=== PATIENT | female | born 1965 | race Caucasian/White ===

== ENCOUNTER 2020-10-23 15:44 | Outpatient (REF) | payer OTHER, SELFPAY ==
--- NOTE | ~2020-10-23 | XR_ITS ---
EXAMINATION: XR FOREARM, LEFT CLINICAL INFORMATION: Pain in the left wrist. COMPARISON: Radiographs of the left hand 04/24/2010 TECHNIQUE: AP and lateral views of the left forearm were obtained. FINDINGS: The bones and soft tissues are normal. No fracture. Imaged portions of the elbow and wrist are unremarkable. XR/XR forearm LT 2V IMPRESSION: Normal left forearm.
--- NOTE | ~2020-10-23 | XR_ITS ---
EXAMINATION: XR WRIST, LEFT CLINICAL INFORMATION: Pain in left wrist COMPARISON: Radiographs of the left hand 04/24/2018 TECHNIQUE: PA, lateral, and oblique views of the left wrist. FINDINGS: The bones are normal in mineralization and cortication. There is a tiny calcific density just distal to the ulnar styloid which is similar to prior radiographs. No acute fracture is identified. Cystic change within the scaphoid is better appreciated than on the previous study Carpal arcs are maintained and alignment is anatomic. Degenerative changes of the first and second carpometacarpal joints are similar to the prior study. Degenerative changes of the interphalangeal joint of the thumb are again noted. XR/XR wrist LT min 3V IMPRESSION: Degenerative changes of the left wrist without acute bony abnormality
== END 2020-10-23 15:45 | disposition home or self-care (01) ==
LOC: HO.HMGCX 15:44
PROVIDERS: PCP Internal Medicine; Visit Provider Physician Assistant
DX: M25.532 Pain in left wrist (principal)
CPT/HCPCS: 73090; 73110

== ENCOUNTER 2021-01-09 08:28 | Outpatient (REF) | payer OTHER, SELFPAY | END 2021-01-09 08:29 | disposition home or self-care (01) | LOC: HO.LAB 08:28 | PROVIDERS: Visit Provider Nurse Practitioner Family | DX: Z20.822 Contact with and (suspected) exposure to COVID-19 (principal) | CPT/HCPCS: U0003; U0005 ==

== ENCOUNTER 2021-01-12 11:54 | Outpatient (REF) | payer OTHER, SELFPAY ==
--- NOTE | ~2021-01-12 | XR_ITS ---
EXAMINATION: XR CHEST CLINICAL INFORMATION: Cough. COMPARISON: None TECHNIQUE: 2 views of the chest were obtained. FINDINGS: No significant abnormality is noted involving the heart, lungs, mediastinum, bony thorax or soft tissues. XR/XR chest 2V IMPRESSION: Unremarkable chest examination.
== END 2021-01-12 11:55 | disposition home or self-care (01) ==
LOC: HO.HMGCX 11:54
PROVIDERS: PCP Internal Medicine; Visit Provider Nurse Practitioner Family
DX: R05 Cough (principal)
CPT/HCPCS: 71046

== ENCOUNTER 2021-12-11 08:31 | Emergency (ER) | payer OTHER, SELFPAY ==
--- NOTE | ~2021-12-11 | XR_ITS ---
EXAMINATION: XR CHEST CLINICAL INFORMATION: Shortness of breath. COMPARISON: 01/12/2021 chest radiographs. TECHNIQUE: Frontal view of the chest was obtained. FINDINGS: No significant abnormality is noted involving the heart, lungs, mediastinum, bony thorax or soft tissues. XR/XR chest 1V IMPRESSION: No acute cardiopulmonary process.
[2021-12-11 08:34] VITALS: BP 107/78; PULSE 100; RESP 18; TEMP 36.9; O2SAT 100; BMI 32.9
--- NOTE | 2021-12-11 08:38 | ECG_ITS ---
Test Reason : weakness Blood Pressure : / mmHG Vent. Rate : 097 BPM Atrial Rate : 097 BPM P-R Int : 144 ms QRS Dur : 088 ms QT Int : 358 ms P-R-T Axes : 049 063 006 degrees QTc Int : 454 ms Normal sinus rhythm Possible Left atrial enlargement Nonspecific ST abnormality Abnormal ECG No previous ECGs available Referred By: Generic ED Physician Electronically Signed By:ROBERTO ROMO MD
--- NOTE | 2021-12-11 08:41 | PC.NURSE ---
lungs - diminished all lobes
[2021-12-11 08:52] LABS: MANUAL DIFF FLAG NO
[2021-12-11 08:56] LABS: Basophils Absolute Auto 0.1 X10*3/uL (0.0-0.2); Basophils Percent Auto 0.6 % (0-2); Eosinophils Absolute Auto 0.2 X10*3/uL (0.0-0.4); Eosinophils Percent Auto 2.2 % (0-4); Hematocrit 39.4 % (37.0-47.0); Hemoglobin 12.9 g/dl (12.0-16.0); Imm Gran Abs Auto 0.05 X10*3/uL (0.00-0.03); Imm Gran Pct Auto 0.6 % (0.0-0.4); Lymphocytes Absolute Auto 1.2 X10*3/uL (1.2-4.9); Lymphocytes Percent Auto 13.4 % (20-40); Mean Corpuscular HGB Conc 32.7 g/dl (31.0-35.0); Mean Corpuscular Hemoglobin 29.7 pg (27.0-33.0); Mean Corpuscular Volume 90.6 fL (80.0-98.0); Mean Platelet Volume 8.2 fL (9.4-12.3); Monocytes Absolute Auto 0.6 X10*3/uL (0.1-1.2); Neutrophils Absolute Auto 6.8 x10*3/uL (2.0-8.3); Neutrophils Percent Auto 76.2 % (45-73); Platelet Count 296 X10*3/uL (160-400); Red Blood Count 4.35 X10*6/uL (4.20-5.50); Red Cell Distribution Width 13.1 % (11.0-16.0)
[2021-12-11 09:08] LABS: COVID-19 Test Negative (Negative)
[2021-12-11 09:09] LABS: Anion Gap 13 (12-20); Blood Urea Nitrogen 17 mg/dL (9-16); Calcium 9.5 mg/dL (8.4-10.2); Carbon Dioxide 21 mmol/L (22-29); Chloride 111 mmol/L (96-108); Creatinine Clr Calc Pharmacy 71.4; Estimated Glomerular Filt Rate > 60; Glucose Random 132 mg/dL (60-115); Potassium 3.9 mmol/L (3.3-5.1); Sodium 141 mmol/L (135-145)
[2021-12-11 09:16] LABS: B Type Natriuretic Peptide 20 pg/mL (<100); Troponin-I High Sensitivity < 3.5 ng/L (<3.5-17.0)
[2021-12-11 09:32] VITALS: BP 125/68; PULSE 84; RESP 17; TEMP 37; O2SAT 97
[2021-12-11 09:39] LABS: IDNOW Serial# 16C4AD1C; Influenza A Negative (Negative); Influenza B2 Negative (Negative)
--- NOTE | 2021-12-11 09:48 | ED.SOB ---
HPI - SOB/Dyspnea General Chief Complaint: Dyspnea Stated Complaint: SOB/cough Time Seen by Provider: 12/11/21 09:02 History of Present Illness HPI Narrative: Patient is a 56-year-old female presented with coughing upper respiratory symptoms generalized malaise. Long history of seasonal allergies. History of seasonal allergies history of smoking presented with coughing congestion upper respiratory symptoms. Patient immunized for COVID. No diaphoresis. No new chest pain. Positive pain on coughing only. Patient from home. Related Data Home Medications Medication Instructions Recorded Confirmed topiramate 50 mg tablet 50 mg PO BID 06/18/20 10/21/21 venlafaxine 75 mg capsule,extended mg PO 06/18/20 10/21/21 release 24 hr quetiapine 50 mg tablet 50 mg PO BEDTIME 01/09/21 10/21/21 buspirone 10 mg tablet 10 mg PO TID 04/01/21 10/21/21 Previous Rx's Medication Instructions Recorded fluticasone propionate 50 1 spray INTRANASAL QAM #16 g 03/26/21 mcg/actuation nasal spray,suspension nicotine (polacrilex) 4 mg gum 4 mg BUCCAL Q2H PRN #120 ea 04/01/21 nicotine 21 mg/24 hr daily 1 patch TRANSDERMAL Q24H #28 ea 04/01/21 transdermal patch diclofenac sodium 75 mg 75 mg PO BID PRN #60 tab 06/23/21 tablet,delayed release famotidine 20 mg tablet 20 mg PO BEDTIME #90 tab 10/05/21 terbinafine HCl 250 mg tablet 250 mg PO DAILY 10 Days #10 tab 10/21/21 albuterol sulfate 90 mcg/actuation 2 puff INHALATION Q6H PRN #8.5 g 12/07/21 aerosol inhaler loratadine 10 mg tablet 10 mg PO DAILY #90 tab 12/07/21 benzonatate 200 mg capsule 200 mg PO BID PRN 5 Days #14 cap 12/11/21 doxycycline hyclate 100 mg capsule 100 mg PO BID 7 Days #14 cap 12/11/21 Allergies Allergy/AdvReac Type Severity Reaction Status Date / Time N.K.D.A. Allergy Unknown unknown Uncoded 10/21/21 10:09 Review of Systems Review of Systems: Positive coughing upper respiratory symptoms positive generalized malaise Yes all other systems are reviewed and are negative PMFSH Past Medical History Attestation statement: The following information was validated with the patient. Medical History Allergic rhinitis Cigarette smoker motivated to quit Depression History of alcohol abuse History of cataract History of cocaine abuse Osteoarthritis of knees, bilateral Polyarthralgia Smokes less 2 pack day motivated to quit Tinea corporis Surgical History History of breast surgery History of cataract surgery Family History Family History Father Unknown family medical history Mother Diabetes mellitus Myocardial infarction Arthritis CVD (cardiovascular disease) Substance use disorder Mental health disorder Brother Myocardial infarction Intestinal hernia Diabetes mellitus Sister Anorexic Bipolar disorder Asthma Brain tumor Substance use disorder Mental health disorder Social History Social History Household Members Other:: mother Housing: House Alcohol intake: former Patient Tobacco Use Status: Current someday Tobacco user Cigarettes Per Day: 10 Advance Directives: No Patient : No service: No Current occupational status: employed Physical Exam Vital Signs: Vital Signs: Last Vital Signs Temp 98.6 F 12/11/21 09:32 Pulse 84 12/11/21 09:32 Resp 17 12/11/21 09:32 BP 125/68 12/11/21 09:32 Pulse Ox 97 12/11/21 09:32 BMI result Body Mass Index 32.9 Appearance: Alert. Oriented X3. No acute distress. Eyes: Pupils equal, round and reactive to light. ENT: Pharynx normal. Neck: Normal inspection. Neck supple. No lymph nodes noted. No crepitus CVS: Normal heart rate and rhythm. Pulses normal. Normal S1 and S2 Respiratory: No respiratory distress. Breath sounds normal. No Wheezing. No rales Abdomen: Soft and nontender. No rigidity. No distention. good BS x4 Skin: Skin warm and dry. Normal skin color. Normal skin turgor. Extremities: No lower extremity edema. Neurovascular intact to all extremities. No Lacerations. No Rash Neuro: Oriented X 3. No motor deficit. No sensory deficit. Moving all extermities. No slurred speech MDM - SOB/Dyspnea MDM Narrative Medical decision making narrative: Chest x-ray showed no focal infiltrate. EKG shows sinus pattern heart rate is 100 CO QRS QT within normal limits there is nonspecific T-wave flattening noted. Cardiac enzyme was negative in the setting of upper respiratory symptoms atypical history unlikely ACS. Patient's flu and COVID were negative. Will start patient on doxycycline for bronchitis. Test on parole for cough. Follow-up on an outpatient basis. O2 sat was normal emergency department at 98%. Medical Records Attestation: I reviewed the patient's medical records. Lab Data Attestation: I reviewed the patient's lab results. Result diagrams: 12/11/21 08:47 12/11/21 08:47 Labs: Lab Results 12/11/21 12/11/21 12/11/21 Range/Units 08:47 08:47 08:47 WBC 9.0 (4.8-10.8) X10*3/uL RBC 4.35 (4.20-5.50) X10*6/uL Hgb 12.9 (12.0-16.0) g/dl Hct 39.4 (37.0-47.0) % MCV 90.6 (80.0-98.0) fL MCH 29.7 (27.0-33.0) pg MCHC 32.7 (31.0-35.0) g/dl RDW 13.1 (11.0-16.0) % Plt Count 296 (160-400) X10*3/uL MPV 8.2 L (9.4-12.3) fL Immature Gran % (Auto) 0.6 H (0.0-0.4) % Neut % (Auto) 76.2 H (45-73) % Lymph % (Auto) 13.4 L (20-40) % [place] % (Auto) 7.0 (2-11) % Eos % (Auto) 2.2 (0-4) % Baso % (Auto) 0.6 (0-2) % Lymph # (Auto) 1.2 (1.2-4.9) X10*3/uL [place] # (Auto) 0.6 (0.1-1.2) X10*3/uL Eos # (Auto) 0.2 (0.0-0.4) X10*3/uL Baso # (Auto) 0.1 (0.0-0.2) X10*3/uL Abs Immat Gran (auto) 0.05 H (0.00-0.03) X10*3/uL Absolute Neuts (auto) 6.8 (2.0-8.3) x10*3/uL Absolute Nucleated RBC 0.000 (0.0-0.012) X10*3/uL Nucleated RBC % (auto) 0.0 (0.0-0.2) /100WBC Sodium 141 (135-145) mmol/L Potassium 3.9 (3.3-5.1) mmol/L Chloride 111 H (96-108) mmol/L Carbon Dioxide 21 L (22-29) mmol/L Anion Gap 13 (12-20) BUN 17 H (9-16) mg/dL Creatinine 0.86 (0.5-1.4) mg/dL Estim Creat Clear Calc 71.4 Estimated GFR > 60 Random Glucose 132 H (60-115) mg/dL Calcium 9.5 (8.4-10.2) mg/dL Troponin I High Sens < 3.5 (<3.5-17.0) ng/L B-Natriuretic Peptide 20 (<100) pg/mL COVID-19 (TAM) (Negative) COVID-19 Clin Com Influenza Type A (TETO) (Negative) Influenza Type B (TETO) (Negative) Influenza A & B Note 12/11/21 12/11/21 Range/Units 08:47 09:17 WBC (4.8-10.8) X10*3/uL RBC (4.20-5.50) X10*6/uL Hgb (12.0-16.0) g/dl Hct (37.0-47.0) % MCV (80.0-98.0) fL MCH (27.0-33.0) pg MCHC (31.0-35.0) g/dl RDW (11.0-16.0) % Plt Count (160-400) X10*3/uL MPV (9.4-12.3) fL Immature Gran % (Auto) (0.0-0.4) % Neut % (Auto) (45-73) % Lymph % (Auto) (20-40) % [place] % (Auto) (2-11) % Eos % (Auto) (0-4) % Baso % (Auto) (0-2) % Lymph # (Auto) (1.2-4.9) X10*3/uL [place] # (Auto) (0.1-1.2) X10*3/uL Eos # (Auto) (0.0-0.4) X10*3/uL Baso # (Auto) (0.0-0.2) X10*3/uL Abs Immat Gran (auto) (0.00-0.03) X10*3/uL Absolute Neuts (auto) (2.0-8.3) x10*3/uL Absolute Nucleated RBC (0.0-0.012) X10*3/uL Nucleated RBC % (auto) (0.0-0.2) /100WBC Sodium (135-145) mmol/L Potassium (3.3-5.1) mmol/L Chloride (96-108) mmol/L Carbon Dioxide (22-29) mmol/L Anion Gap (12-20) BUN (9-16) mg/dL Creatinine (0.5-1.4) mg/dL Estim Creat Clear Calc Estimated GFR Random Glucose (60-115) mg/dL Calcium (8.4-10.2) mg/dL Troponin I High Sens (<3.5-17.0) ng/L B-Natriuretic Peptide (<100) pg/mL COVID-19 (TAM) Negative (Negative) COVID-19 Clin Com See Note Influenza Type A (TETO) Negative (Negative) Influenza Type B (TETO) Negative (Negative) Influenza A & B Note See Note ECG Data Attestation: I personally reviewed and interpreted this ECG as follows: Discharge Plan Discharge Clinical Impression: Bronchitis Patient Disposition: Home, Self-Care Instructions: Acute Bronchitis (ED) Prescriptions: New doxycycline hyclate 100 mg capsule 100 mg PO BID 7 Days Qty: 14 0RF benzonatate 200 mg capsule 200 mg PO BID PRN (Reason: cough) 5 Days Qty: 14 0RF No Action fluticasone propionate 50 mcg/actuation spray,suspension 1 spray intranasal QAM Qty: 16 3RF nicotine (polacrilex) 4 mg gum 4 mg buccal Q2H PRN (Reason: nicotine cravings) Qty: 120 0RF diclofenac sodium 75 mg tablet,delayed release (/EC) 75 mg PO BID PRN (Reason: pain) Qty: 60 0RF famotidine 20 mg tablet 20 mg PO BEDTIME Qty: 90 1RF loratadine 10 mg tablet 10 mg PO DAILY Qty: 90 3RF albuterol sulfate 90 mcg/actuation HFA aerosol inhaler 2 puff inhalation Q6H PRN (Reason: shortness of breath or wheezing) Qty: 8.5 4RF buspirone 10 mg tablet 10 mg PO TID 0RF nicotine 21 mg/24 hr patch 24 hour 1 patch transdermal Q24H Qty: 28 0RF topiramate 50 mg tablet 50 mg PO BID 0RF venlafaxine 75 mg capsule,extended release 24hr PO 0RF quetiapine 50 mg tablet 50 mg PO BEDTIME 0RF terbinafine HCl 250 mg tablet 250 mg PO DAILY 10 Days Qty: 10 0RF Referrals: Sara Cid MD [Primary Care Provider] -
== END 2021-12-11 10:37 | disposition home or self-care (01) ==
PROVIDERS: Emergency Provider Emergency Medicine Emergency Medical Services; PCP Internal Medicine
DX: J40 Bronchitis, not specified as acute or chronic (principal); R06.02 Shortness of breath; F17.210 Nicotine dependence, cigarettes, uncomplicated; Z20.822 Contact with and (suspected) exposure to COVID-19
CPT/HCPCS: 36415; 71045; 80048; 83880; 84484; 85025; 87502; 87635; 93005; 99283; 99284

== ENCOUNTER 2022-02-05 07:04 | Outpatient (REF) | payer OTHER, SELFPAY ==
[2022-02-05 11:40] LABS: Glucose Fasting 97 mg/dL (60-99)
[2022-02-05 12:07] LABS: TSH reflex Free T4 2.48 uIU/mL (0.32-4.0)
[2022-02-07 05:12] LABS: Lyme Abs Screen <0.90 index
== END 2022-02-05 07:05 | disposition home or self-care (01) ==
LOC: HO.HMGCLDS 07:04
PROVIDERS: Visit Provider Internal Medicine
DX: R21 Rash and other nonspecific skin eruption (principal); R42 Dizziness and giddiness
CPT/HCPCS: 36415; 82947; 84443; 86617; 86618

== ENCOUNTER 2022-03-09 10:45 | Outpatient (RCR) | payer OTHER, SELFPAY ==
[2022-03-09 10:56] VITALS: BP 112/80; PULSE 78; O2SAT 98
--- NOTE | 2022-03-09 11:56 | MHC.PT.EP ---
[facility] [place] Office [place] Office [place] Office [address] [phone] F: [phone] F: [phone] F: [phone] F: [phone] Physical Therapy Plan of Care Date of Evaluation: Date of Surgery: Diagnosis: This is a 56 yo female presenting to skilled PT with a script for dizziness and giddiness. Assessment: This is a 56 yo female presenting to skilled PT with a script for dizziness and giddiness. Patient reporting onset of symptoms about 3 months ago. Symptoms are random but occur only with movement, not at rest (however she is unable to recall specific movements that cause her symptoms.) Patient reports symptoms described as spinning fast, B arms go numb, gets a feeling of weirdness at the mouth, and gets nauseous. She needs to lay down for 2 hrs after an event. Denies imaging. Denies medications. She reports LOB but no falls. She has never had symptoms like this in the past. Examination shows abnormal oculomotor tests except for spontaneous saccades, horizontal saccades and smooth pursuits, (-) VBI B, and normal cervical AROM (however reports concerns of bumps and numbness in neck. She was (-) for BPPV in all 6 canals and demos normal scores on balance tests. S/S are not consistent with BPPV at this time. She may benefit from further imaging due to abnormal eye movements, referral to ENT, bloodwork or referral to a nuerologist to address impairments, implement POC and optimize functional mobility. 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 Manual therapy to restore motion and function. Therapeutic exercise to improve strength and flexibility. Neuromuscular re-education for posture and balance. Therapeutic activities to return to functional activities of daily living. Electronically signed by: Ellen Mckinnon, PT Please sign and return to therapist. Thank you for your referral.
--- NOTE | 2022-04-09 10:45 | MHC.PT.DC ---
[facility] [place] Office [place] Office [place] Office [address] Jadon Marques [address] [phone] F: [phone] F: [phone] F: [phone] F: [phone] Physical Therapy Discharge Report Diagnosis: This is a 56 yo female presenting to skilled PT with a script for dizziness and giddiness. Date of Surgery: Date of Evaluation: 03/09/22 Date of Discharge: 04/09/22 Treatments to Date: 1 Cancellations to Date: 0 No Shows to Date: 0 Discharge Status: Patient Elected to Stop Recommend MD Follow-up Discharge Summary: This is a 56 yo female presenting to skilled PT with a script for dizziness and giddiness. Patient reporting onset of symptoms about 3 months ago. Symptoms are random but occur only with movement, not at rest (however she is unable to recall specific movements that cause her symptoms.) Patient reports symptoms described as spinning fast, B arms go numb, gets a feeling of weirdness at the mouth, and gets nauseous. She needs to lay down for 2 hrs after an event. Denies imaging. Denies medications. She reports LOB but no falls. She has never had symptoms like this in the past. Examination shows abnormal oculomotor tests except for spontaneous saccades, horizontal saccades and smooth pursuits, (-) VBI B, and normal cervical AROM (however reports concerns of bumps and numbness in neck. She was (-) for BPPV in all 6 canals and demos normal scores on balance tests. S/S are not consistent with BPPV at this time. She may benefit from further imaging due to abnormal eye movements, referral to ENT, bloodwork or referral to a neurologist to address impairments, implement POC and optimize functional mobility. Patient called and was seeing an specialist who wants her to hold. Waited 30 days and then DC'd Electronically signed by: Ellen Mckinnon PT Please sign and return to therapist. Thank you for your referral.
== END 2022-04-09 10:46 | disposition home or self-care (01) ==
LOC: HO.PTCHIC 10:45
PROVIDERS: PCP Internal Medicine; Visit Provider Internal Medicine
DX: R42 Dizziness and giddiness (principal)
CPT/HCPCS: 97110; 97161; 97162

== ENCOUNTER 2022-04-22 08:01 | Outpatient (REF) | payer OTHER, SELFPAY ==
--- NOTE | ~2022-04-22 | MR_ITS ---
EXAMINATION: MR BRAIN WITHOUT AND WITH CONTRAST CLINICAL INFORMATION: Vertigo. Evaluate for acoustic neuroma. COMPARISON: No relevant prior imaging. TECHNIQUE: Multiplanar MR imaging the brain was performed without and with contrast. Total of 8.5 mL Gadavist was utilized for this examination. FINDINGS: Dedicated high-resolution imaging through the posterior fossa reveals no cerebellopontine angle cistern mass. There is no abnormal enhancement along the cisternal segments of the 7th or 8th cranial nerves. Labyrinthine structures are morphologically normal. There is trace fluid within the left mastoid air cells. No abnormal petrous temporal bone enhancement. Postcontrast images reveal no abnormal mass or enhancement elsewhere within the intracranial compartment. No intracranial mass effect or midline shift. Lateral and third ventricles are normal. No hydrocephalus. Midline structures including the cervicomedullary junction are normal. No acute bone marrow signal changes. There are scattered nonspecific foci of T2 FLAIR signal hyperintensity within the periventricular white matter and [place]. No acute territorial infarct. Intracranial vascular flow voids are grossly maintained. MR/MR head/brain wo/w con IMPRESSION: There is a trace volume of fluid within the left mastoid air cells. There are also scattered chronic small vessel ischemic changes within the periventricular white matter and bridgette. No evidence of acute territorial infarct or hemorrhage. There is no abnormal intracranial mass or enhancement. Specifically no evidence of a vestibular schwannoma.
== END 2022-04-22 08:02 | disposition home or self-care (01) ==
LOC: HO.MRI 08:01
PROVIDERS: Visit Provider Psychiatry & Neurology Neurology
DX: R42 Dizziness and giddiness (principal)
CPT/HCPCS: 70553; A9585

== ENCOUNTER 2022-06-01 09:39 | Outpatient (REF) | payer OTHER, SELFPAY ==
[2022-06-01 12:20] LABS: Erythrocyte Sedimentation Rate 9 MM/HR (0-20)
[2022-06-02 17:52] LABS: Lyme Abs Screen <0.90 index
[2022-06-04 11:43] LABS: Anti Nuclear Antibody Screen NEGATIVE (NEGATIVE)
== END 2022-06-01 09:40 | disposition home or self-care (01) ==
LOC: HO.HMGCLDS 09:39
PROVIDERS: PCP Internal Medicine; Visit Provider Psychiatry & Neurology Neurology
DX: R42 Dizziness and giddiness (principal)
CPT/HCPCS: 36415; 85652; 86038; 86039; 86617; 86618

== ENCOUNTER 2022-09-14 07:13 | Outpatient (REF) | payer OTHER, SELFPAY ==
[2022-09-14 11:29] LABS: MANUAL DIFF FLAG NO
[2022-09-14 11:35] LABS: Basophils Absolute Auto 0.1 X10*3/uL (0.0-0.2); Basophils Percent Auto 0.7 % (0-2); Eosinophils Absolute Auto 0.2 X10*3/uL (0.0-0.4); Eosinophils Percent Auto 2.4 % (0-4); Hematocrit 40.2 % (37.0-47.0); Hemoglobin 13.1 g/dl (12.0-16.0); Imm Gran Abs Auto 0.03 X10*3/uL (0.00-0.03); Imm Gran Pct Auto 0.4 % (0.0-0.4); Lymphocytes Absolute Auto 2.2 X10*3/uL (1.2-4.9); Lymphocytes Percent Auto 31.2 % (20-40); Mean Corpuscular HGB Conc 32.6 g/dl (31.0-35.0); Mean Corpuscular Hemoglobin 29.2 pg (27.0-33.0); Mean Corpuscular Volume 89.5 fL (80.0-98.0); Monocytes Absolute Auto 0.5 X10*3/uL (0.1-1.2); Monocytes Percent Auto 6.9 % (2-11); Neutrophils Absolute Auto 4.2 x10*3/uL (2.0-8.3); Neutrophils Percent Auto 58.4 % (45-73); Platelet Count 362 X10*3/uL (160-400); Red Blood Count 4.49 X10*6/uL (4.20-5.50); White Blood Count 7.1 X10*3/uL (4.8-10.8)
[2022-09-14 11:51] LABS: Alanine Aminotransferase 15 U/L (0-31); Anion Gap 15 (12-20); Aspartate Amino Transferase 15 U/L (5-31); Blood Urea Nitrogen 25 mg/dL (9-16); Calcium 9.2 mg/dL (8.4-10.2); Carbon Dioxide 21 mmol/L (22-29); Chloride 110 mmol/L (96-108); Cholesterol 205 mg/dL; Estimated Glomerular Filt Rate > 60; Glucose Fasting 87 mg/dL (60-99); HDL Cholesterol 49 mg/dL; LDL Cholesterol Calculated 133 mg/dl; Sodium 142 mmol/L (135-145); Triglycerides 119 mg/dL
[2022-09-14 12:10] LABS: TSH reflex Free T4 1.88 uIU/mL (0.32-4.0); Vitamin D 25-OH Total 28.5 ng/mL (>30)
[2022-09-14 12:11] LABS: Estimated Average Glucose 108 mg/dL; Hemoglobin A1c % 5.4 %
== END 2022-09-14 07:14 | disposition home or self-care (01) ==
LOC: HO.HMGCLDS 07:13
PROVIDERS: PCP Internal Medicine; Visit Provider Internal Medicine
DX: E66.3 Overweight (principal); M25.50 Pain in unspecified joint; R25.1 Tremor, unspecified; R42 Dizziness and giddiness
CPT/HCPCS: 36415; 80048; 80061; 82306; 83036; 84443; 84450; 84460; 85025

== ENCOUNTER 2023-01-05 12:41 | Outpatient (AMB) | payer OTHER, MEDICAID, SELFPAY ==
--- NOTE | 2023-01-05 12:54 | MHC.PC.OV ---
Vital Signs 01/05/23 13:17 Height 5 ft 3 in Weight 197 lb 8 oz BMI 35.0 BP 128/76 Blood Pressure Location Rt brachial Position Sitting Pulse 101 H Pulse Source Pulse Oximeter Pulse Oximetry (%) 97 Oxygen Delivery Method Room Air Intake Visit Reasons: annual Pe Intake Note: Pt is here today for her Physical Exam Allergies N.K.D.A. Allergy (Unknown, Uncoded 06/23/23 01:32) unknown Medication List - Last Reconciled 06/23/23 by Sara Cid MD albuterol sulfate 90 mcg/actuation (Ventolin HFA) 2 puffs inhalation Q6H PRN benzonatate 200 mg PO TID PRN buspirone 15 mg PO TID famotidine 20 mg PO DAILY fluticasone propionate 50 mcg/actuation (Flonase Allergy Relief) 1 spray intranasal DAILY loratadine 10 mg PO DAILY topiramate 50 mg PO BID venlafaxine ER 150 mg PO DAILY Tobacco use date assessed: 01/05/23 HPI annual Pe HPI Details 58-year-old lady here today for her physical exam. She has anxiety/ depression currently stable controlled on buspirone taken 15 mg 1 tablet 3 times a day, taken together with venlafaxine ER 150 mg daily. Has allergic rhinitis currently on loratadine 10 mg daily and uses Flonase nasal spray as needed. She is overdue for her screening mammogram, and declines getting any Pap smear/cervical cancer screening or colon cancer screening. She smokes cigarettes, would would like assistance in quitting. Complains of nasal congestion with frontal headaches and postnasal drainage which has been present now for the last week. Has been taking [id number] cough cold medication which affords only temporary relief. Denies any fever or shortness of breath accompanying above symptoms. [facility] Medical History (Updated 06/23/23 @ 01:57 by Sara Cid MD) Obesity (BMI 30.0-34.9) Anxiety and depression Tinea corporis Polyarthralgia Smokes less 2 pack day motivated to quit Cigarette smoker motivated to quit Allergic rhinitis History of cataract History of alcohol abuse History of cocaine abuse Osteoarthritis of knees, bilateral Surgical History History of breast surgery History of cataract surgery Family History Father Unknown family medical history Mother Diabetes mellitus Myocardial infarction Arthritis CVD (cardiovascular disease) Substance use disorder Mental health disorder Brother Myocardial infarction Intestinal hernia Diabetes mellitus Sister Anorexic Bipolar disorder Asthma Brain tumor Substance use disorder Mental health disorder Social History Household Members Other:: mother Housing: House Alcohol intake: former Patient Tobacco Use Status: Former Tobacco user Cigarettes Per Day: 10 e-Cigarette/Vaping Use: Never Used service: No Current occupational status: employed Cognitive needs: No Hearing needs: No Vision needs: Yes Questionnaire PHQ-9 Over the last 2 weeks, how often have you been bothered by any of the following problems? 1. Little interest or pleasure in doing things: nearly every day 2. Feeling down, depressed, or hopeless: more than half the days 3. Trouble falling or staying asleep, or sleeping too much: more than half the days 4. Feeling tired or having little energy: nearly every day 5. Poor appetite or overeating: nearly every day 6. Feeling bad about yourself - or that you are a failure or have let yourself or your family down: several days 7. Trouble concentrating on things, such as reading the newspaper or watching television: several days 8. Moving or speaking so slowly that other people could have noticed. Or the opposite - being so fidgety or restless that you have been moving around a lot more than usual: not at all 9. Thoughts that you would be better off or of hurting yourself in some way: not at all Total score: 15 Depression Screening Interpretation: Positive Depression Screening Follow-up: Existing condition, In treatment and Community Mental Health Worker F/U Source: Developed by Drs. Beto Gomez, Rupinder Mccullough, Reggie Sena and colleagues, with an educational rashida from [employer]. Thrive Questionnaire Date Thrive assessed: 01/05/23 I am a: Patient What is your living situation today?: I have a steady place to live Within the past 12 months, did the food you bought not last and you didn't have the money to get more?: Never true Within the past 12 months, did you worry whether your food would run out before you got money to buy more?: Sometimes True Do you have trouble paying for medicines?: No Do you have trouble getting transportation to medical appointments?: No Do you have trouble paying your heating and electricity bill?: No Do you have trouble taking care of your child, family member or friend?: No Do you have trouble with day-to-day activities such as bathing, preparing meals, shopping, managing finances, etc.?: No Are you currently unemployed and looking for a job?: No Are you interested in more education?: No AUDIT C Alcohol Use Questionnaire (AUDIT-C) 1. How often do you have a drink containing alcohol?: Never Total Score: 0 ELLIE-7 AMB Questionnaire ELLIE-7 Date ELLIE - 7 assessed: 01/05/23 Feeling nervous, anxious, or on edge: 3 = Nearly every day Not being able to stop or control worryin = Nearly every day Worrying too much about different things: 2 = More than half the days Trouble relaxin = More than half the days Being so restless that it is hard to sit still: 1 = Several days Becoming easily annoyed or irritable: 2 = More than half the days Feeling afraid as if something awful might happen: 0 = Not at all Total ELLIE-7 score (0-4 normal; 5-9 mild; 10-14 moderate; 15-21 severe): 13 Source: Developed by Drs. Beto Gomez, Rupinder Mccullough, Reggie Sena and colleagues, with an educational rashida from [employer]. ELLIE-7 Assessment Billing ELLIE-7 Assessment Tool: ELLIE-7 Assessment 95038 Review of Systems Const Reports as per HPI, Denies body aches, Denies fatigue, Denies fever(s) and Denies weakness Eyes Denies change in vision, Denies eye discharge, Denies itchy eyes and Reports requires corrective lenses ENT Reports as per HPI, Denies dizziness, Denies ear discharge, Denies epistaxis, Reports post nasal drip, Reports sinus pressure and Denies sore throat Card Denies chest pain, Denies lightheadedness, Denies palpitations and Denies dyspnea Resp Denies chest congestion, Reports cough, Denies dyspnea and Denies wheezing GI Denies abdominal pain, Denies change in bowel habits and Denies heartburn Denies hematuria, Denies urinary frequency, Denies dysuria and Denies urinary urgency Musc Reports arthralgias, Denies joint swelling, Denies muscle weakness and Reports stiffness Skin/Breast Denies breast pain, Denies breast mass, Denies lesions and Denies rash Neuro Denies dizziness and Denies weakness Psych Reports as per HPI Endo Denies fatigue, Denies polydipsia, Denies polyuria and Denies palpitations Yovany/Lymph Denies easy bruising Aller/Immun Denies itchy eyes, Denies seasonal rhinorrhea and Denies wheezing Physical exam (Primary Care) Vital Signs: Last Vital Signs Pulse 101 H 01/05/23 13:17 BP 128/76 01/05/23 13:17 Pulse Ox 97 01/05/23 13:17 Oxygen Delivery Method Room Air 01/05/23 13:17 BMI result Body Mass Index 35.0 Tobacco/Smoking Status: Tobacco use Status Tobacco use date assessed 01/05/23 01/05/23 13:21 Patient Tobacco Use Status Current everyday Tobacco 01/05/23 14:16 e-Cigarette/Vaping Use Never Used 01/05/23 12:54 PHQ-9: PHQ-9 Score PHQ-9: Total score 15 01/05/23 13:52 Depression Screening Interpretation: Positive Depression Screening Follow-up: Existing condition, In treatment and Community Mental Health Worker F/U Thrive Assessment: Date of Thrive Assessment Date Thrive assessed 01/05/23 01/05/23 13:38 Const General: no acute distress Orientation/consciousness: patient oriented x3 HENMT Ears: external ears normal, TM normal on the left and EAC's normal General nose exam: Normal external nose present and No nasal discharge present Face and sinus: Yes sinuses nontender and Yes face symmetric Mouth: Normal oral and palatal mucosa present, oropharynx normal and moist mucous membranes Eyes General: appearance normal, both eyes and all related structures Neck Neck: Yes full ROM, Yes no lymphadenopathy and Yes supple Chest Breast/axilla palpation: normal palpation of the breasts Resp Effort & Inspection: able to speak in complete sentences, audible wheezes and Actively coughing Quality: actively coughing Auscultation: diminished lung sounds Cardio Rate: regular rate Rhythm: regular rhythm Heart sounds: S1 normal heart sound present and S2 normal heart sound present GI Palpation (GI): Soft to palpation, nontender and no masses General: Yes no CVA tenderness and Yes deferred (Patient declined exam) Back/Spine/Pelvis Back: no CVA tenderness and No back tenderness Skin General skin exam: dry skin Neuro General: patient oriented x3, gait normal, moves all extremities, Normal light touch and pain sensation, no focal motor deficits and CN's II-XI intact bilaterally Extrem General: Yes full ROM, Yes no joint enlargement, Yes no clubbing, cyanosis or edema and Yes normal gait Psych Appearance: grossly normal Mental Status: mental status grossly normal Speech and movement: Normal speech and movement present Affect: normal affect Attitude: cooperative Thought process: Normal thought process present Results Reviewed Results Reviewed: ENTERED: 09/14/[address]: ORDERED: Met Prof Fast, AST, ALT, Lipid Panel, Vitamin D 25-OH, TSH Rflx Test Result Flag Reference Site Sodium 142 135-145 mmol/L Potassium 4.0 3.3-5.1 mmol/L CL 110 H 96-108 mmol/L CO2 21 L 22-29 mmol/L Gap 15 12-20 BUN 25 H 9-16 mg/dL Creat 0.80 0.5-1.4 mg/dL EGFR > 60 NOTE: For -Cymraes individuals, multiply the result by 1.210. Chronic Kidney Disease: Estimated GFR < 60 mL/min/1.73m2 Severe Kidney Disease: Estimated GFR < 15 mL/min/1.73m2 FBS 87 60-99 mg/dL CA 9.2 8.4-10.2 mg/dL AST (GOT) 15 5-31 U/L ALT (GPT) 15 0-31 U/L Triglyceride 119 mg/dL Desirable Triglyceride: less than 150 mg/dL Borderline High Triglyceride 150-199 mg/dL High Triglyceride: 200-499 mg/dL Very High Triglyceride: greater than or equal to 5OO mg/dL Chol 205 mg/dL Desirable Cholesterol: less than 200 mg/dL Borderline High Cholesterol: 200-239 mg/dL High Cholesterol: greater than 239 mg/dL LDL Calculated 133 mg/dl Desirable LDL: less than 100 mg/dL Near Optimal/Above Optimal LDL: 110-129 mg/dL Borderline High LDL: 130-159 mg/dL High LDL: 160-189 mg/dL Very High LDL: greater than or equal to 190 mg/dL HDL 49 mg/dL Desirable HDL: greater than 40 mg/dL Note: This HDL assay may give artificially low results in patients with liver disease. Vit D 25-OH Tot 28.5 >30 ng/mL Health Based Reference Values* < 20 ng/mL Deficient 20-30 ng/mL Insufficient > 30 ng/mL Sufficient *Conor DIEGO. N Engl J Med. 2007;357:266-280 Care must be taken in interpreting Vitamin D results from different laboratories and methodologies. Published data demonstrated that results from patients undergoing hemodialysis may show a negative bias when tested with various automated 25-OH vitamin D assays when compared to LC-MS/MS. When testing samples from patients whose predominant form of Vitamin D is Vitamin D2, such as patients receiving Vitamin D2 supplementation, results that are subtherapeutic should be confirmed with another method such as LC-MS/MS. TSH 1.88 0.32-4.0 uIU/mL ENTERED: 09/14/22 [facility] : ORDERED: CBC Auto Diff Test Result Flag Reference Site WBC 7.1 4.8-10.8 X10*3/uL RBC 4.49 4.20-5.50 X10*6/uL HGB 13.1 12.0-16.0 g/dl HCT 40.2 37.0-47.0 % MCV 89.5 80.0-98.0 fL MCH 29.2 27.0-33.0 pg MCHC 32.6 31.0-35.0 g/dl RDW 13.0 11.0-16.0 % PLT 362 160-400 X10*3/uL MPV 9.0 L 9.4-12.3 fL Neut Pct Auto 58.4 45-73 % ImGran Pct Auto 0.4 0.0-0.4 % Lymp Pct Auto 31.2 20-40 % Coffey Pct Auto 6.9 2-11 % Eos Pct Auto 2.4 0-4 % Baso Pct Auto 0.7 0-2 % NRBC Pct Auto 0.0 0.0-0.2 /100WBC ANC Neut Abs # 4.2 2.0-8.3 x10*3/uL ImGran Abs Auto 0.03 0.00-0.03 X10*3/uL Lymph Abs Auto 2.2 1.2-4.9 X10*3/uL Coffey Abs Auto 0.5 0.1-1.2 X10*3/uL Eos Abs Auto 0.2 0.0-0.4 X10*3/uL Baso Abs Auto 0.1 0.0-0.2 X10*3/uL NRBC Abs Auto 0.000 0.0-0.012 X10*3/uL Assessment and Plan Assessment & Plan (1) Annual visit for general adult medical examination with abnormal findings: Code(s): Z00.01 - Encounter for general adult medical examination with abnormal findings Plan: Recent fasting labs reviewed with patient. Recommended dental visit every 6 months and regular eye exams, at least every 2 years. Take adequate calcium in diet and vitamin-D 3 at 2000 IU per cap once a day, as latest vitamin-D level is low., in addition to weight-bearing exercises to help maintain good muscle tone and weight control. Instructed to do self-breast exam, and scheduled for her screening mammogram be done yearly, but patient does not want to get any cervical cancer screening or referral for colon cancer screening (2) Obesity (BMI 30.0-34.9): Code(s): E66.9 - Obesity, unspecified Plan: Discussed need to increase activity and wt reduction. Recommended focusing on improving your health instead of dieting. : Eat Mediterranean diet, limit foods high in fat, sugar, and calories, eat slowly, pay attention to portion sizes, plan your meals ahead of time, start regular physical activity 150 minutes of moderate intensity exercise or 90 minutes/week of vigorous exercise and increase water intake. (3) Cigarette smoker motivated to quit: Code(s): F17.210 - Nicotine dependence, cigarettes, uncomplicated Plan: Prescription sent for nicotine patch 21 mg per patch to apply to affected sites on upper arm, upper chest and upper back and reminded to remove patch at night before going to bed and reapplied again the next morning. Reminded to rotate sites of application, not to smoke when using the patch. See back for follow-up in 4 weeks (4) Anxiety and depression: Comment: Followed by Jacklyn chavez Code(s): F41.9 - Anxiety disorder, unspecified; F32.A - Depression, unspecified Plan: Followed by psychiatry and sees therapist. (5) Allergic rhinitis: Code(s): J30.9 - Allergic rhinitis, unspecified Qualifiers: Allergic rhinitis trigger: unspecified Allergic rhinitis seasonality: unspecified Qualified Code(s): J30.9 - Allergic rhinitis, unspecified Plan: Continue with fluticasone propionate nasal spray as directed (6) Bronchitis: Code(s): J40 - Bronchitis, not specified as acute or chronic Plan: Prescription sent for azithromycin to take as directed, as well as benzonatate Perles to be used as needed for dry cough Orders: Orders MM screening mammo BI 01/05/23 Z12.31 - Encounter for screening mammogram for malignant neoplasm of breast Medications: New azithromycin For 250 mg dose pack: take 500 mg today (day 1), then 250 mg for 4 days (days 2-5) PO 6 tabs 0RF nicotine apply 1-21 mg NICOTINE PATCH daily for 28 days; follow with 1-14 mg PATCH daily for 14 days, then 1-7mg PATCH daily for 14 days transdermal advised to rotate sites of application and remove at bedtime 56 patches 0RF Changed From famotidine 20 mg PO BEDTIME 90 tabs 0RF To famotidine 20 mg PO DAILY 90 tabs 1RF From albuterol sulfate 90 mcg/actuation 2 puffs inhalation Q6H PRN 8.5 grams 4RF shortness of breath or wheezing To albuterol sulfate 90 mcg/actuation 2 puffs inhalation Q6H PRN 8.5 grams 4RF shortness of breath or wheezing Refilled benzonatate 200 mg PO TID PRN 20 caps 0RF cough fluticasone propionate 50 mcg/actuation (Flonase Allergy Relief) administer into each nostril 1 spray intranasal DAILY 9.9 mL 1RF loratadine 10 mg PO DAILY 90 tabs 3RF Discontinued nicotine Discontinued Reason: No Longer Medically Relevant 1 inh inhalation Q2-4H PRN 168 ea 0RF nicotine cravings Review Patient declined Colonoscopy: 01/05/23 Coding Level of Care Code Est Pt Prev Care 40-64y(21133) Diagnoses Annual visit for general adult medical examination with abnormal findings Z00.01 Obesity (BMI 30.0-34.9) E66.9 Cigarette smoker motivated to quit F17.210 Anxiety and depression F41.9; F32.A Allergic rhinitis, unspecified seasonality, unspecified trigger J30.9 Allergic rhinitis trigger: unspecified Allergic rhinitis seasonality: unspecified Bronchitis J40 Additional Codes ELLIE-7 Assessment Billing - ELLIE-7 Assessment Tool: ELLIE-7 Assessment 42001 ([id number])
[2023-01-05 13:17] VITALS: BP 128/76; PULSE 101; O2SAT 97; BMI 35.0
== END 2023-01-05 14:24 | disposition home or self-care (01) ==
LOC: HO.HMGC 12:42
PROVIDERS: PCP Internal Medicine; Visit Provider Internal Medicine
DX: Z00.00 Encounter for general adult medical examination without abnormal findings (principal); E66.9 Obesity, unspecified; F17.210 Nicotine dependence, cigarettes, uncomplicated; Z68.35 Body mass index [BMI] 35.0-35.9, adult; F41.9 Anxiety disorder, unspecified; F32.A Depression, unspecified; J30.9 Allergic rhinitis, unspecified; J40 Bronchitis, not specified as acute or chronic
CPT/HCPCS: 99396

== ENCOUNTER 2023-05-07 06:33 | Outpatient (REF) | payer OTHER, MEDICAID, SELFPAY ==
[2023-05-07 12:01] LABS: Alanine Aminotransferase 17 U/L (0-31); Anion Gap 14 (12-20); Aspartate Amino Transferase 17 U/L (5-31); Blood Urea Nitrogen 24 mg/dL (9-16); Calcium 9.5 mg/dL (8.4-10.2); Carbon Dioxide 22 mmol/L (22-29); Chloride 111 mmol/L (96-108); Cholesterol 168 mg/dL (<200); Estimated Glomerular Filt Rate > 60; Glucose Fasting 87 mg/dL (60-99); HDL Cholesterol 48 mg/dL (>40); LDL Cholesterol Calculated 100 mg/dL (<100); Sodium 143 mmol/L (135-145); Triglycerides 101 mg/dL (<150); Vitamin D 25-OH Total 64.7 ng/mL (>30)
== END 2023-05-07 06:34 | disposition home or self-care (01) ==
LOC: HO.HMGCLDS 06:33
PROVIDERS: PCP Internal Medicine; Visit Provider Internal Medicine
DX: Z00.01 Encounter for general adult medical examination with abnormal findings (principal); E66.9 Obesity, unspecified; F41.9 Anxiety disorder, unspecified; F32.A Depression, unspecified; M25.50 Pain in unspecified joint; F32.9 Major depressive disorder, single episode, unspecified; N95.1 Menopausal and female climacteric states; F17.200 Nicotine dependence, unspecified, uncomplicated
CPT/HCPCS: 36415; 80048; 80061; 82306; 84450; 84460

== ENCOUNTER 2023-05-10 13:07 | Outpatient (AMB) | payer OTHER, MEDICAID, SELFPAY ==
--- NOTE | 2023-05-10 13:39 | MHC.PC.OV ---
Vital Signs 05/10/23 13:40 Height 5 ft 3 in Weight 178 lb BMI 31.5 BP 126/70 Blood Pressure Location Lt brachial Position Sitting Pulse 88 Pulse Source Pulse Oximeter Pulse Oximetry (%) 97 Oxygen Delivery Method Room Air Intake Visit Reasons: Rapid weight loss Intake Note: patient is here today for rapid weight loss Allergies N.K.D.A. Allergy (Unknown, Uncoded 06/23/23 01:32) unknown Medication List - Last Reconciled 05/10/23 by Sara Cid MD albuterol sulfate 90 mcg/actuation (Ventolin HFA) 2 puffs inhalation Q6H PRN benzonatate 200 mg PO TID PRN buspirone 15 mg PO TID famotidine 20 mg PO DAILY fluticasone propionate 50 mcg/actuation (Flonase Allergy Relief) 1 spray intranasal DAILY loratadine 10 mg PO DAILY topiramate 50 mg PO BID venlafaxine ER 150 mg PO DAILY Tobacco use date assessed: 05/10/23 Dental Screening Dental Screen Date: 05/10/23 Did you have a dental visit in the last 12 months?: No Did you have a dental problem in the last 6 months where you did not have access to dental care?: No Was dental information given to patient?: No HPI Rapid weight loss HPI Details 58-year-old lady here today concerned about her weight loss. She has been trying to lose weight, however she is concerned about the rapidity of her weight loss. She was weighing 197 lb in December 2022 and now weighs 178 lb., a 19 lb weight loss in 5 months. She does state that her appetite is not as robust and she has been fairly active these last few months. Denies any weakness, no dizziness, no chest pain, no nausea vomiting or shortness of breath or lightheadedness reported. [facility] Medical History (Updated 06/23/23 @ 01:57 by Sara Cid MD) Obesity (BMI 30.0-34.9) Anxiety and depression Tinea corporis Polyarthralgia Smokes less 2 pack day motivated to quit Cigarette smoker motivated to quit Allergic rhinitis History of cataract History of alcohol abuse History of cocaine abuse Osteoarthritis of knees, bilateral Surgical History History of breast surgery History of cataract surgery Family History Father Unknown family medical history Mother Diabetes mellitus Myocardial infarction Arthritis CVD (cardiovascular disease) Substance use disorder Mental health disorder Brother Myocardial infarction Intestinal hernia Diabetes mellitus Sister Anorexic Bipolar disorder Asthma Brain tumor Substance use disorder Mental health disorder Social History Household Members Other:: mother Housing: House Alcohol intake: former Patient Tobacco Use Status: Former Tobacco user Cigarettes Per Day: 10 e-Cigarette/Vaping Use: Never Used service: No Current occupational status: employed Cognitive needs: No Hearing needs: No Vision needs: Yes Questionnaire Thrive Questionnaire Date Thrive assessed: 01/05/23 AUDIT C Alcohol Use Questionnaire (AUDIT-C) 1. How often do you have a drink containing alcohol?: Never Total Score: 0 ELLIE-7 AMB Questionnaire ELLIE-7 Date ELLIE - 7 assessed: 01/05/23 Source: Developed by Drs. Beto Gomez, Rupinder Mccullough, Reggie Sena and colleagues, with an educational rashida from [employer]. Review of Systems Const Reports as per HPI, Denies body aches, Denies fatigue, Denies fever(s) and Denies weakness Eyes Denies change in vision and Reports requires corrective lenses ENT Reports no additional complaints Card Denies chest pain, Denies lightheadedness, Denies palpitations and Denies dyspnea Resp Denies chest congestion, Denies dyspnea and Denies wheezing GI Denies abdominal pain, Denies change in bowel habits, Denies dyspepsia, Denies heartburn and Denies nausea Denies hematuria, Denies urinary frequency, Denies dysuria and Denies urinary urgency Musc Denies joint swelling, Denies muscle weakness and Reports stiffness Skin/Breast Denies rash Neuro Denies weakness Psych Details: Currently followed by psychiatry Reports no additional complaints Endo Denies fatigue, Denies polydipsia, Denies polyuria and Denies palpitations Yovany/Lymph Denies easy bruising Aller/Immun Denies seasonal rhinorrhea and Denies wheezing Physical exam (Primary Care) Vital Signs: Last Vital Signs Pulse 88 05/10/23 13:40 BP 126/70 05/10/23 13:40 Pulse Ox 97 05/10/23 13:40 Oxygen Delivery Method Room Air 05/10/23 13:40 BMI result Body Mass Index 31.5 Tobacco/Smoking Status: Tobacco use Status Tobacco use date assessed 05/10/23 05/10/23 13:43 Patient Tobacco Use Status Former Tobacco user 05/10/23 13:52 e-Cigarette/Vaping Use Never Used 05/10/23 13:43 Thrive Assessment: Date of Thrive Assessment Date Thrive assessed 01/05/23 05/10/23 13:43 Const General: no acute distress Orientation/consciousness: patient oriented x3 HENMT Ears: external ears normal General nose exam: Normal external nose present and No nasal discharge present Face and sinus: Yes face symmetric Mouth: Normal oral and palatal mucosa present, oropharynx normal and moist mucous membranes Eyes General: appearance normal, both eyes and all related structures Neck Neck: Yes full ROM, Yes no lymphadenopathy and Yes supple Chest Breast/axilla palpation: normal palpation of the breasts Resp Effort & Inspection: able to speak in complete sentences Cardio Rate: regular rate Rhythm: regular rhythm Heart sounds: S1 normal heart sound present and S2 normal heart sound present GI Palpation (GI): Soft to palpation, nontender and no masses General: Yes no CVA tenderness Back/Spine/Pelvis Back: no CVA tenderness and No back tenderness Skin General skin exam: dry skin Neuro General: patient oriented x3, gait normal, moves all extremities, Normal light touch and pain sensation, no focal motor deficits and CN's II-XI intact bilaterally Extrem General: Yes full ROM, Yes no joint enlargement, Yes no clubbing, cyanosis or edema and Yes normal gait Psych Appearance: grossly normal Mental Status: mental status grossly normal Speech and movement: Normal speech and movement present Affect: normal affect Attitude: cooperative Thought process: Normal thought process present Office Procedures Flu Questionnaire Does the patient have a severe egg allergy?: No Does the patient have severe life threatening allergies?: No Does the patient have a fever or illness today?: No Has the patient ever had Guillain-Grant Syndrome?: No Has the patient ever had any past reaction to a flu shot?: No Immunizations flu vacc [id number] 6mos up(PF) 60 mcg(15 mcgx4)/0.5 mL IM syringe Performing Provider: Sara Cid MD Performing Location: [facility] Administered by: Sade Davis CMA on 05/10/23 14:11 Dose Route Admin Location Dispensed Lot Number Expiration Date NDC [employer] 0.5 mL IM Right Deltoid 0.5 mL [id number] 02/05/24 98061-908-01 [employer] VIS Given Date VIS Provided VIS Publication Date 05/10/23 Single Vaccine 21 Eligibility Eligibility Date Funding Source Not [facility] Eligible 05/10/23 Private Assessment and Plan Assessment & Plan (1) Obesity (BMI 30.0-34.9): Code(s): E66.9 - Obesity, unspecified Plan: Advised patient that a 19 lb weight loss in a span of 5 months is a healthy weight loss.. Continue with adhering to healthy eating habits and getting regular exercise at least 30 minutes and a daily basis, strongly advised to quit smoking. (2) Anxiety and depression: Comment: Followed by Jacklyn chavez Code(s): F41.9 - Anxiety disorder, unspecified; F32.A - Depression, unspecified Plan: Patient requesting a refill on her venlafaxine as she has not been able to contact her psychiatrist. Refill sent, patient also on buspirone 15 mg 1 tablet 3 times a day (3) Flu vaccine need: Code(s): Z23 - Encounter for immunization Plan: Flu vaccine given today Orders: Orders Influenza [id number] Immunization 05/10/23 Z23 - Encounter for immunization Medications: New venlafaxine ER 150 mg PO DAILY 90 caps 0RF Coding Level of Care Code Est Pt Level 3 (31672) Diagnoses Obesity (BMI 30.0-34.9) E66.9 Anxiety and depression F41.9; F32.A Flu vaccine need Z23
[2023-05-10 13:40] VITALS: BP 126/70; PULSE 88; O2SAT 97; BMI 31.5
== END 2023-05-10 14:27 | disposition home or self-care (01) ==
PROVIDERS: PCP Internal Medicine; Visit Provider Internal Medicine
DX: E66.9 Obesity, unspecified (principal); F41.9 Anxiety disorder, unspecified; F32.A Depression, unspecified; Z68.31 Body mass index [BMI] 31.0-31.9, adult
CPT/HCPCS: 90471; 90686; 99213

== ENCOUNTER 2023-07-07 11:36 | Outpatient (AMB) | payer OTHER, MEDICAID, SELFPAY ==
[2023-07-07 11:48] VITALS: BP 130/86; PULSE 101; O2SAT 98; BMI 32.3
--- NOTE | 2023-07-07 11:48 | MHC.PC.OV ---
Vital Signs 07/07/23 11:48 Height 5 ft 3 in Weight 182 lb 4 oz BMI 32.3 BP 130/86 Blood Pressure Location Rt brachial Position Sitting Pulse 101 H Pulse Source Pulse Oximeter Pulse Oximetry (%) 98 Oxygen Delivery Method Room Air Intake Visit Reasons: left shoulder pain Intake Note: Pt is here for left shoulder pain and arm pain that goes up to her neck she has had for over a month [place] [facility] [place] prednisone 50 mg and cyclobenzaprine 10 mg that did help some but pt is still at a 10 with her pain Allergies N.K.D.A. Allergy (Unknown, Uncoded 07/07/23 12:31) unknown Medication List - Last Reconciled 07/07/23 by Sara Cid MD albuterol sulfate 90 mcg/actuation (Ventolin HFA) 2 puffs inhalation Q6H PRN buspirone 15 mg PO TID cyclobenzaprine 10 mg PO BEDTIME PRN famotidine 20 mg PO DAILY fluticasone propionate 50 mcg/actuation (Flonase Allergy Relief) 1 spray intranasal DAILY loratadine 10 mg PO DAILY nabumetone 500 mg PO BID PRN topiramate 50 mg PO BID venlafaxine ER 150 mg PO DAILY Tobacco use date assessed: 07/07/23 Dental Screening Dental Screen Date: 07/07/23 Did you have a dental visit in the last 12 months?: No Did you have a dental problem in the last 6 months where you did not have access to dental care?: No Was dental information given to patient?: No HPI left shoulder pain HPI Details 58 year old lady today complaining of shoulder pain on the left present now for the last month. She states that initially started on her upper arm radiating down left forearm and up to her left upper back and shoulder. Denies any history of strenuous exertion, no history of trauma. Was seen at an urgent care in [place] and was prescribed prednisone 50 mg daily for 7 days and cyclobenzaprine 10 mg taken once a day for 7 days which afforded only temporary relief while taking the medication. She denies any numbness, no weakness in extremities, no chest pain palpitations or shortness of breath. No imaging done [facility] Medical History Left shoulder pain Obesity (BMI 30.0-34.9) Anxiety and depression Tinea corporis Polyarthralgia Smokes less 2 pack day motivated to quit Cigarette smoker motivated to quit Allergic rhinitis History of cataract History of alcohol abuse History of cocaine abuse Osteoarthritis of knees, bilateral Surgical History History of breast surgery History of cataract surgery Family History Father Unknown family medical history Mother Diabetes mellitus Myocardial infarction Arthritis CVD (cardiovascular disease) Substance use disorder Mental health disorder Brother Myocardial infarction Intestinal hernia Diabetes mellitus Sister Anorexic Bipolar disorder Asthma Brain tumor Substance use disorder Mental health disorder Social History Household Members Other:: mother Housing: House Alcohol intake: former Patient Tobacco Use Status: Former Tobacco user Cigarettes Per Day: 10 e-Cigarette/Vaping Use: Never Used service: No Current occupational status: employed Cognitive needs: No Hearing needs: No Vision needs: Yes Questionnaire Thrive Questionnaire Date Thrive assessed: 01/05/23 ELLIE-7 AMB Questionnaire ELLIE-7 Date ELLIE - 7 assessed: 01/05/23 Source: Developed by Drs. Beto Gomez, Rupinder Mccullough, Reggie Sena and colleagues, with an educational rashida from [employer]). Review of Systems Const All systems reviewed & are unremarkable except as noted in HPI and below Physical exam (Primary Care) Vital Signs: Last Vital Signs Pulse 101 H 07/07/23 11:48 BP 130/86 07/07/23 11:48 Pulse Ox 98 07/07/23 11:48 Oxygen Delivery Method Room Air 07/07/23 11:48 BMI result Body Mass Index 32.3 Tobacco/Smoking Status: Tobacco use Status Tobacco use date assessed 07/07/23 07/07/23 11:57 Patient Tobacco Use Status Former Tobacco user 07/07/23 11:51 e-Cigarette/Vaping Use Never Used 07/07/23 11:51 Thrive Assessment: Date of Thrive Assessment Date Thrive assessed 01/05/23 07/07/23 11:51 Const General: comfortable, alert, awake and Physically active Orientation/consciousness: patient oriented x3 Neck Neck: Yes full ROM and Yes no lymphadenopathy Chest Chest palpation & inspection: normal inspection of the chest Resp Auscultation: clear to auscultation bilaterally Cardio Rate: regular rate Rhythm: regular rhythm Heart sounds: S1 normal heart sound present and S2 normal heart sound present Skin General skin exam: no rashes or lesions noted Neuro Other: Unable to abduct left arm more than 45 degrees without eliciting pain in left shoulder joint General: patient oriented x3 and gait normal Extrem Other: Positive tenderness and swelling over left trapezius and left AC joint, decreased range of motion of left arm due to pain Assessment and Plan Assessment & Plan (1) Left shoulder pain: Code(s): M25.512 - Pain in left shoulder Qualifiers: Chronicity: acute Qualified Code(s): M25.512 - Pain in left shoulder Plan: X-ray of left shoulder and cervical spine ordered, referred for physical therapy. Prescription sent for nabumetone 500 mg per tablet to take 1 twice a day as needed for moderate to severe pain. Patient advised to take it always with a meal. Refill prescription also sent for cyclobenzaprine 10 mg to take 1/2-1 tablet once or twice a day as needed for painful muscle spasm. Orders: Orders XR cervical spine min 6V Today M25.512 - Pain in left shoulder XR shoulder LT min 2V Today M25.512 - Pain in left shoulder PT Evaluation and Treatment Today M25.512 - Pain in left shoulder Medications: New nabumetone 500 mg PO BID PRN 40 tabs 0RF pain, moderate cyclobenzaprine 10 mg PO BEDTIME PRN 30 tabs 0RF muscle spasm Coding Level of Care Code Est Pt Level 3 (28324) Diagnoses Acute pain of left shoulder M25.512 Chronicity: acute
== END 2023-07-07 13:03 | disposition home or self-care (01) ==
PROVIDERS: PCP Internal Medicine; Visit Provider Internal Medicine
DX: M25.512 Pain in left shoulder (principal)
CPT/HCPCS: 99213

== ENCOUNTER 2023-07-07 12:26 | Outpatient (REF) | payer OTHER, MEDICAID, SELFPAY ==
--- NOTE | ~2023-07-07 | XR_ITS ---
STUDY: Cervical spine, left shoulder INDICATION: Left shoulder pain COMPARISON: None TECHNIQUE: 3 view cervical spine, three-view left shoulder FINDINGS: Cervical spine: Mild straightening of normal cervical lordosis. Minimal anterolisthesis C4 on C5. C5-C6 and C6-C7 disc space narrowings. Hypertrophic facet changes. Odontoid is intact, posterior elements are aligned and no prevertebral soft tissue swelling seen. Lung apices are clear. Calcification left cervical region may be vascular. Left shoulder: Mild acromioclavicular joint space narrowing. Joint is maintained. No fracture, dislocation or abnormal calcifications. Visualized ribs and left lung are unremarkable. XR/XR cervical spine min 6V IMPRESSION: Cervical lordotic straightening, minimal anterolisthesis C4 on C5, C5-C6 and C6-C7 disc space narrowings. No acute bony pathology left shoulder. Mild degenerative change.
--- NOTE | ~2023-07-07 | XR_ITS ---
STUDY: Cervical spine, left shoulder INDICATION: Left shoulder pain COMPARISON: None TECHNIQUE: 3 view cervical spine, three-view left shoulder FINDINGS: Cervical spine: Mild straightening of normal cervical lordosis. Minimal anterolisthesis C4 on C5. C5-C6 and C6-C7 disc space narrowings. Hypertrophic facet changes. Odontoid is intact, posterior elements are aligned and no prevertebral soft tissue swelling seen. Lung apices are clear. Calcification left cervical region may be vascular. Left shoulder: Mild acromioclavicular joint space narrowing. Joint is maintained. No fracture, dislocation or abnormal calcifications. Visualized ribs and left lung are unremarkable. XR/XR shoulder LT min 2V IMPRESSION: Cervical lordotic straightening, minimal anterolisthesis C4 on C5, C5-C6 and C6-C7 disc space narrowings. No acute bony pathology left shoulder. Mild degenerative change.
== END 2023-07-07 12:27 | disposition home or self-care (01) ==
LOC: HO.HMGCX 12:26
PROVIDERS: PCP Internal Medicine; Visit Provider Internal Medicine
DX: M25.512 Pain in left shoulder (principal)
CPT/HCPCS: 72052; 73030

== ENCOUNTER 2023-12-07 12:53 | Outpatient (AMB) | payer OTHER, SELFPAY ==
--- NOTE | 2023-12-07 13:07 | A.OFFPC_ITS ---
Vital Signs 12/07/23 13:09 Height 5 ft 3 in Weight 192 lb BMI 34.0 BP 132/88 Blood Pressure Location Rt brachial Position Sitting Pulse 96 Pulse Source Pulse Oximeter Pulse Oximetry (%) 99 Oxygen Delivery Method Room Air Intake Visit Reasons: F/U for Arm/neck/Medications Intake Note: Pt is here today for her f/u arm and neck pain Allergies N.K.D.A. Allergy (Unknown, Uncoded 02/08/24 12:15) unknown Medication List - Last Reconciled 02/08/24 by Saar Cid MD albuterol sulfate 90 mcg/actuation (Ventolin HFA) 2 puffs inhalation Q6H PRN buspirone 15 mg PO TID cyclobenzaprine 10 mg PO BEDTIME PRN famotidine 20 mg PO DAILY fluticasone propionate 50 mcg/actuation (Flonase Allergy Relief) 1 spray intranasal DAILY loratadine 10 mg PO DAILY nabumetone 500 mg PO BID PRN topiramate 50 mg PO BID venlafaxine ER 150 mg PO DAILY Tobacco use date assessed: 12/07/23 Dental Screening Dental Screen Date: 12/07/23 Did you have a dental visit in the last 12 months?: No Was dental information given to patient?: Patient declined HPI F/U for Arm/neck/Medications HPI Details 58 year old lady hre for ffup after bein g seen at the walk-in for left shoulder pain, which initially started on her upper arm radiating down left forearm and up to her left upper back and shoulder. Denies any history of strenuous exertion, no history of trauma. She was seen at an urgent care in [place] and was prescribed prednisone 50 mg daily for 7 days and cyclobenzaprine 10 mg taken once a day for 7 days which afforded only temporary relief while taking the medication. She denies any numbness, no weakness in extremities, no chest pain palpitations or shortness of breath. Cervical spine x-ray was ordered which showed Cervical lordotic straightening, minimal anterolisthesis C4 on C5, C5-C6 and C6-C7 disc space narrowings. No acute bony pathology left shoulder. Mild degenerative change. Left shoulder x- ray showed mild acromioclavicular joint space narrowing, no fracture, dislocation or abnormal calcifications. She was then prescribed nabumetone and continued on cyclobenzaprine which has afforded relief. Would like a refill however on her cyclobenzaprine which she takes as needed results of muscle spasm . . [facility] Medical History Left shoulder pain Obesity (BMI 30.0-34.9) Anxiety and depression Tinea corporis Polyarthralgia Smokes less 2 pack day motivated to quit Cigarette smoker motivated to quit Allergic rhinitis History of cataract History of alcohol abuse History of cocaine abuse Osteoarthritis of knees, bilateral Surgical History History of breast surgery History of cataract surgery Family History Father Unknown family medical history Mother Diabetes mellitus Myocardial infarction Arthritis CVD (cardiovascular disease) Substance use disorder Mental health disorder Brother Myocardial infarction Intestinal hernia Diabetes mellitus Sister Anorexic Bipolar disorder Asthma Brain tumor Substance use disorder Mental health disorder Social History Household Members Other:: mother Housing: House Alcohol intake: former Patient Tobacco Use Status: Former Tobacco user Cigarettes Per Day: 10 e-Cigarette/Vaping Use: Never Used service: No Current occupational status: employed Cognitive needs: No Hearing needs: No Vision needs: Yes Questionnaire Thrive Questionnaire Date Thrive assessed: 01/05/23 ELLIE-7 AMB Questionnaire ELLIE-7 Date ELLIE - 7 assessed: 01/05/23 Source: Developed by Drs. Beto Gomez, Rupinder Mccullough, Reggie Sena and colleagues, with an educational rashida from [employer]. Review of Systems Const All systems reviewed & are unremarkable except as noted in HPI and below Physical exam (Primary Care) Vital Signs: Last Vital Signs Pulse 96 12/07/23 13:09 BP 132/88 12/07/23 13:09 Pulse Ox 99 12/07/23 13:09 Oxygen Delivery Method Room Air 12/07/23 13:09 BMI result Body Mass Index 34.0 Tobacco/Smoking Status: Tobacco use Status Tobacco use date assessed 12/07/23 12/07/23 13:13 Patient Tobacco Use Status Former Tobacco user 12/07/23 13:08 e-Cigarette/Vaping Use Never Used 12/07/23 13:08 Thrive Assessment: Date of Thrive Assessment Date Thrive assessed 01/05/23 12/07/23 13:08 Const General: comfortable, alert, awake and Physically active Orientation/consciousness: patient oriented x3 Neck Neck: Yes full ROM and Yes no lymphadenopathy Resp Auscultation: clear to auscultation bilaterally Cardio Rate: regular rate Rhythm: regular rhythm Heart sounds: S1 normal heart sound present and S2 normal heart sound present Skin General skin exam: no rashes or lesions noted Neuro General: patient oriented x3 and gait normal Extrem General: Yes full ROM, Yes no joint enlargement, Yes no clubbing, cyanosis or edema and Yes normal gait Assessment and Plan Assessment & Plan (1) Left shoulder pain: Code(s): M25.512 - Pain in left shoulder Qualifiers: Chronicity: acute Qualified Code(s): M25.512 - Pain in left shoulder Plan: Patient reports improvement in her shoulder brain but would like to see if she can get another refill on her cyclobenzaprine which he takes as needed. Discussed results of shoulder x-ray and cervical spine x-ray with her (2) Bronchospasm: Code(s): J98.01 - Acute bronchospasm Plan: Strongly advised to stop smoking, refill sent for her albuterol inhaler to take as needed as well as her Flonase nasal spray to take as needed for nasal congestion and postnasal drainage. Medications: Changed From albuterol sulfate 90 mcg/actuation 2 puffs inhalation Q6H PRN 8.5 grams 0RF shortness of breath or wheezing To albuterol sulfate 90 mcg/actuation (Ventolin HFA) 2 puffs inhalation Q6H PRN 8.5 grams 0RF shortness of breath or wheezing Refilled cyclobenzaprine 10 mg PO BEDTIME PRN 30 tabs 0RF muscle spasm fluticasone propionate 50 mcg/actuation (Flonase Allergy Relief) administer into each nostril 1 spray intranasal DAILY 9.9 mL 1RF Coding Level of Care Code Est Pt Level 4 (80893) Diagnoses Acute pain of left shoulder M25.512 Chronicity: acute Bronchospasm J98.01
[2023-12-07 13:09] VITALS: BP 132/88; PULSE 96; O2SAT 99; BMI 34.0
== END 2023-12-07 13:55 | disposition home or self-care (01) ==
PROVIDERS: PCP Internal Medicine; Visit Provider Internal Medicine
DX: M25.512 Pain in left shoulder (principal); J98.01 Acute bronchospasm
CPT/HCPCS: 99214

== ENCOUNTER 2023-12-27 08:43 | Outpatient (AMB) | payer OTHER, MEDICAID, SELFPAY ==
[2023-12-27 08:47] VITALS: BP 130/80; PULSE 94; TEMP 36.7; O2SAT 97; BMI 34.0
--- NOTE | 2023-12-27 08:47 | MHC.OFFWIV ---
Intake Vital Signs 12/27/23 08:47 Height 5 ft 3 in Weight 192 lb BMI 34.0 BP 130/80 Blood Pressure Location Rt brachial Position Sitting Pulse 94 Pulse Source Pulse Oximeter Temp 98.1 F Temp Source Oral Pulse Oximetry (%) 97 Oxygen Delivery Method Room Air Intake Visit Reasons: EST/cough and ear ache (lobby masked) Intake Note: pt is here for concern of ear ache and cough Patient Tobacco Use Status: Former Tobacco user Allergies N.K.D.A. Allergy (Unknown, Uncoded 12/27/23 08:48) unknown Medication List - Last Reconciled 12/27/23 by BREE Jarquin albuterol sulfate 90 mcg/actuation (Ventolin HFA) 2 puffs inhalation Q6H PRN buspirone 15 mg PO TID cyclobenzaprine 10 mg PO BEDTIME PRN doxycycline hyclate 100 mg PO BID 7 days famotidine 20 mg PO DAILY fluticasone propionate 50 mcg/actuation (Flonase Allergy Relief) 1 spray intranasal DAILY loratadine 10 mg PO DAILY nabumetone 500 mg PO BID PRN topiramate 50 mg PO BID venlafaxine ER 150 mg PO DAILY Do you need a note to return to daycare/school/sports/work: Yes HPI HPI Comments History of Present Illness Details 58-year-old female presents today complaining of cough with a history of asthma and pneumonia, also shortness of breath but denies chest pain. [facility] Medical History Left shoulder pain Obesity (BMI 30.0-34.9) Anxiety and depression Tinea corporis Polyarthralgia Smokes less 2 pack day motivated to quit Cigarette smoker motivated to quit Allergic rhinitis History of cataract History of alcohol abuse History of cocaine abuse Osteoarthritis of knees, bilateral Surgical History History of breast surgery History of cataract surgery Family History Father Unknown family medical history Mother Diabetes mellitus Myocardial infarction Arthritis CVD (cardiovascular disease) Substance use disorder Mental health disorder Brother Myocardial infarction Intestinal hernia Diabetes mellitus Sister Anorexic Bipolar disorder Asthma Brain tumor Substance use disorder Mental health disorder Social History Household Members Other:: mother Housing: House Alcohol intake: former Patient Tobacco Use Status: Former Tobacco user Cigarettes Per Day: 10 e-Cigarette/Vaping Use: Never Used service: No Current occupational status: employed Cognitive needs: No Hearing needs: No Vision needs: Yes Review of Systems Const All systems reviewed & are unremarkable except as noted in HPI and below Eyes Reports no additional complaints ENT Reports nasal discharge, Reports sinus pain and Reports sinus pressure Card Reports no additional complaints Resp Reports cough GI Reports no additional complaints Physical Exam Vital Signs: Last Vital Signs Temp 98.1 F 12/27/23 08:47 Pulse 94 12/27/23 08:47 BP 130/80 12/27/23 08:47 Pulse Ox 97 12/27/23 08:47 Oxygen Delivery Method Room Air 12/27/23 08:47 BMI result Body Mass Index 34.0 HEENT Head: Yes normal to inspection, Yes normocephalic and Yes atraumatic Ears: hearing grossly normal bilaterally and TM's normal bilaterally General nose exam: Normal external nose present Face and sinus: Yes sinus tenderness Throat: Yes posterior oropharynx normal Resp Effort & Inspection: normal respiratory effort Auscultation: clear to auscultation bilaterally Cardio Rate: regular rate Rhythm: regular rhythm Heart sounds: S1 normal heart sound present and S2 normal heart sound present Results Reviewed Results Reviewed: X-ray results today were negative for pneumonia which was reviewed with the patient Assessment & Plan Assessment & Plan (1) Cough: Code(s): R05 - Cough Plan: The patient was put on antibiotics and will follow up with her PCP. (2) Sinusitis: Code(s): J32.9 - Chronic sinusitis, unspecified Plan: The patient was put on antibiotic and follow up with her PCP Plan See plan Orders: Orders XR chest 2V Today R05 - Cough SARS-CoV2/FLU/RSV Today R09.89 - Other specified symptoms and signs involving the circulatory and respiratory systems Medications: New doxycycline hyclate 100 mg PO BID 7 days 14 caps 0RF Coding Level of Care Code Est Pt Level 3 (71895) Diagnoses Cough R05 Sinusitis J32.9
== END 2023-12-27 09:51 | disposition home or self-care (01) ==
PROVIDERS: PCP Internal Medicine; Visit Provider Physician Assistant Medical
DX: R05.9 Cough, unspecified (principal); J32.9 Chronic sinusitis, unspecified
CPT/HCPCS: 99213

== ENCOUNTER 2023-12-27 09:16 | Outpatient (REF) | payer OTHER, SELFPAY ==
--- NOTE | ~2023-12-27 | XR_ITS ---
EXAMINATION: XR CHEST CLINICAL INFORMATION: Cough. COMPARISON: 12/11/2021, 01/01/2019. TECHNIQUE: 2 views of the chest were obtained. FINDINGS: The lungs are well-inflated. Heart size is normal. There is no gross pleural effusion. No focal consolidation to suggest pneumonia. Mild degenerative changes in the thoracic spine. XR/XR chest 2V IMPRESSION: No evidence of pneumonia.
[2023-12-27 14:37] LABS: Influenza A PCR NEGATIVE (Negative); Influenza B PCR NEGATIVE (Negative); Resp Syncy Virus RNA Qual PCR NEGATIVE (Negative); SARS COV2 PCR INHOUSE NEGATIVE (Negative)
== END 2023-12-27 09:17 | disposition home or self-care (01) ==
LOC: HO.HMGCX 09:16
PROVIDERS: PCP Internal Medicine; Visit Provider Physician Assistant Medical
DX: R05.9 Cough, unspecified (principal)
CPT/HCPCS: 0241U; 71046

== ENCOUNTER 2024-01-25 10:00 | Outpatient (AMB) | payer OTHER, SELFPAY ==
[2024-01-25 10:01] VITALS: BP 118/70; PULSE 104; TEMP 36.5; O2SAT 97; BMI 34.9
--- NOTE | 2024-01-25 10:01 | AM.OFFWIN_ITS ---
Intake Vital Signs 3 01/25/24 10:01 Height 5 ft 3 in Weight 197 lb BMI 34.9 BP 118/70 Blood Pressure Location Lt brachial Position Sitting Pulse 104 H Pulse Source Pulse Oximeter Temp 97.7 F Temp Source Temporal Artery Scan Pulse Oximetry (%) 97 Oxygen Delivery Method Room Air Intake Visit Reasons: EP Pain behind RT knee unable to bend it Intake Note: pt is here today for pain behind rt knee started 2 weeks ago. Patient Tobacco Use Status: Former Tobacco user Allergies N.K.D.A. Allergy (Unknown, Uncoded 01/25/24 10:04) unknown Do you need a note to return to daycare/school/sports/work: No HPI EP Pain behind RT knee unable to bend it 2 HPI0 Details 58 year old female patient is here today for pain behind her right knee which started 2 weeks ago. Denies any trauma or injury. History of knee OA, however no surgical history. Reports a lump in the back of her knee that is extremely tender. Painful to walk and bend knee. Leaves for vacation in a few days and wants to be evaluated. [facility] Medical History Left shoulder pain Obesity (BMI 30.0-34.9) Anxiety and depression Tinea corporis Polyarthralgia Smokes less 2 pack day motivated to quit Cigarette smoker motivated to quit Allergic rhinitis History of cataract History of alcohol abuse History of cocaine abuse Osteoarthritis of knees, bilateral Surgical History History of breast surgery History of cataract surgery Family History Father Unknown family medical history Mother Diabetes mellitus Myocardial infarction Arthritis CVD (cardiovascular disease) Substance use disorder Mental health disorder Brother Myocardial infarction Intestinal hernia Diabetes mellitus Sister Anorexic Bipolar disorder Asthma Brain tumor Substance use disorder Mental health disorder Social History Household Members Other:: mother Housing: House Alcohol intake: former Patient Tobacco Use Status: Former Tobacco user Cigarettes Per Day: 10 e-Cigarette/Vaping Use: Never Used service: No Current occupational status: employed Cognitive needs: No Hearing needs: No Vision needs: Yes Review of Systems Const All systems reviewed & are unremarkable except as noted in HPI and below Physical Exam Vital Signs: Last Vital Signs Temp 97.7 F 01/25/24 10:01 Pulse 104 H 01/25/24 10:01 BP 118/70 01/25/24 10:01 Pulse Ox 97 01/25/24 10:01 Oxygen Delivery Method Room Air 01/25/24 10:01 BMI result Body Mass Index 34.9 Const General: cooperative Nutritional Appearance: obese HEENT Head: Yes normal to inspection Resp Effort & Inspection: normal respiratory effort Auscultation: clear to auscultation bilaterally Cardio Rate: regular rate Rhythm: regular rhythm Skin General skin exam: no rashes or lesions noted Extrem Other: Posterior right knee extremely tender with swelling. No excessive warmth or redness. Pain in this area with extension and flexion of right knee. No edema. Normal pedal pulses, cap refill. Knee images: 2 1. swelling, pain Psych Appearance: grossly normal Mental Status: mental status grossly normal Speech and movement: Normal speech and movement present Assessment & Plan Assessment & Plan (1) Pain and swelling of right lower leg: Code(s): M79.661 - Pain in right lower leg; M79.89 - Other specified soft tissue disorders Plan: Venous US of RLE obtained in office today and does not reveal any cyst of DVT. Reviewed this with patient during visit. Possible muscular/fascial strain. I am going to start her on a short course of antiinflammatory medication. We reviewed indications, use, possible s/e of medication. She can also take Tylenol as needed. I applied YFN wrap and supplied patient with ice pack. Advised intermittent elevation, ice, continued compression at home. If she does not improve with time and conservative measures, or if symptoms worsen or new symptoms develop, to return to clinic. She agrees to plan. Orders: Orders 2 US venous duplex LE RT Today M79.661 - Pain in right lower leg, M79.89 - Other specified soft tissue disorders Medications: New 2 meloxicam Take once a day with food. Do not take nabumetone while taking this medication. 15 mg PO ONCE 7 days 7 tabs 0RF M79.661 - Pain in right lower leg, M79.89 - Other specified soft tissue disorders Coding Level of Care Code Est Pt Level 4 (79412) Diagnoses Pain and swelling of right lower leg M79.661; M79.89
== END 2024-01-25 11:57 | disposition home or self-care (01) ==
PROVIDERS: PCP Internal Medicine; Visit Provider Nurse Practitioner Family
DX: M79.661 Pain in right lower leg (principal); M79.89 Other specified soft tissue disorders
CPT/HCPCS: 99214

== ENCOUNTER 2024-01-25 11:22 | Outpatient (REF) | payer OTHER, SELFPAY ==
--- NOTE | ~2024-01-25 | US_ITS ---
EXAMINATION: US VENOUS ULTRASOUND WITH DOPPLER LOWER EXTREMITY, RIGHT CLINICAL INFORMATION: Pain. COMPARISON: None available. TECHNIQUE: Ultrasound of the deep veins is performed from the hip to the calf with compression sonography and color and pulse Doppler assessment. Spectral analysis with color-flow imaging is performed. FINDINGS: There is normal venous compression and respiratory variation and augmented flow. The visualized common femoral vein, superficial femoral vein, profunda femoral vein, popliteal vein, and the trifurcation region shows no evidence of deep venous thrombosis. There is no significant popliteal fossa cyst. Nonaggressive-appearing mildly enlarged right inguinal lymph nodes, most likely reactive in nature. If the patient's symptoms persist, followup ultrasound in 5 days 7 days might be of value to exclude proximal propagation from a non-visualized calf vein. US/US venous duplex LE RT IMPRESSION: No DVT demonstrated in the right lower extremity.
== END 2024-01-25 11:23 | disposition home or self-care (01) ==
LOC: HO.HMGCX 11:22
PROVIDERS: PCP Internal Medicine; Visit Provider Nurse Practitioner Family
DX: M79.661 Pain in right lower leg (principal); M79.89 Other specified soft tissue disorders
CPT/HCPCS: 93971

== ENCOUNTER 2024-02-08 11:49 | Outpatient (AMB) | payer OTHER, SELFPAY ==
[2024-02-08 12:04] VITALS: BP 150/80; PULSE 99; O2SAT 97; BMI 34.3
--- NOTE | 2024-02-08 12:04 | A.OFFPC_ITS ---
Vital Signs 02/08/24 12:04 Height 5 ft 3 in Weight 193 lb 6 oz BMI 34.3 BP 150/80 H Blood Pressure Location Rt brachial Position Sitting Pulse 99 Pulse Source Pulse Oximeter Pulse Oximetry (%) 97 Oxygen Delivery Method Room Air Intake Visit Reasons: P.E. Intake Note: Pt is here today for her annual physical. Allergies N.K.D.A. Allergy (Unknown, Uncoded 02/08/24 12:25) unknown Medication List - Last Reconciled 02/08/24 by Sara Cid MD albuterol sulfate 90 mcg/actuation (Ventolin HFA) 2 puffs inhalation Q6H PRN buspirone 15 mg PO TID cyclobenzaprine 10 mg PO BEDTIME PRN famotidine 20 mg PO DAILY fluticasone propionate 50 mcg/actuation (Flonase Allergy Relief) 1 spray intranasal DAILY loratadine 10 mg PO DAILY nabumetone 500 mg PO BID PRN topiramate 50 mg PO BID venlafaxine ER 150 mg PO DAILY Tobacco use date assessed: 02/08/24 Dental Screening Dental Screen Date: 02/08/24 Did you have a dental visit in the last 12 months?: No Did you have a dental problem in the last 6 months where you did not have access to dental care?: No Was dental information given to patient?: Patient has dentist HPI P.E. HPI Details 58-year-old lady here today for physical exam. She has anxiety depression, currently stable and controlled on venlafaxine ER 150 mg daily. Continues to smoke cigarettes with no desire to quit at present time. She is overdue for her cervical cancer screening, screening mammogram and screening for colon cancer. . Has been having persistent pain in the back her right knee, worse when she bears weight on it, this has been present now for the last several days,. No history of trauma or strenuous exertion. She has been taking Tylenol alternate doing it ibuprofen which affords temporary relief. She has not been able to go back to work due to pain on prolonged walking and standing. [facility] Medical History (Updated 02/08/24 @ 12:51 by Sara Cid MD) Former cigarette smoker Posterior right knee pain Left shoulder pain Obesity (BMI 30.0-34.9) Anxiety and depression Tinea corporis Polyarthralgia Smokes less 2 pack day motivated to quit Cigarette smoker motivated to quit Allergic rhinitis History of cataract History of alcohol abuse History of cocaine abuse Osteoarthritis of knees, bilateral Surgical History History of breast surgery History of cataract surgery Family History Father Unknown family medical history Mother Diabetes mellitus Myocardial infarction Arthritis CVD (cardiovascular disease) Substance use disorder Mental health disorder Brother Myocardial infarction Intestinal hernia Diabetes mellitus Sister Anorexic Bipolar disorder Asthma Brain tumor Substance use disorder Mental health disorder Social History Household Members Other:: mother Housing: House Alcohol intake: former Patient Tobacco Use Status: Former Tobacco user Cigarettes Per Day: 10 e-Cigarette/Vaping Use: Never Used service: No Current occupational status: employed Cognitive needs: No Hearing needs: No Vision needs: Yes Questionnaire PHQ-9 Over the last 2 weeks, how often have you been bothered by any of the following problems? 1. Little interest or pleasure in doing things: several days 2. Feeling down, depressed, or hopeless: several days 3. Trouble falling or staying asleep, or sleeping too much: several days 4. Feeling tired or having little energy: several days 5. Poor appetite or overeating: not at all 6. Feeling bad about yourself - or that you are a failure or have let yourself or your family down: several days 7. Trouble concentrating on things, such as reading the newspaper or watching television: several days 8. Moving or speaking so slowly that other people could have noticed. Or the opposite - being so fidgety or restless that you have been moving around a lot more than usual: not at all 9. Thoughts that you would be better off or of hurting yourself in some way: not at all Total score: 6 Depression Screening Interpretation: Positive Depression Screening Follow-up: Existing condition, In treatment and Community Mental Health Worker F/U Depression Screening Done: Yes 85153 - PHQ-9 Billing: Yes Source: Developed by Drs. Beto Gomez, Rupinder Mccullough, Reggie Sena and colleagues, with an educational rashida from [employer]. Thrive Questionnaire Date Thrive assessed: 02/08/24 I am a: Patient What is your living situation today?: I have a steady place to live Within the past 12 months, did the food you bought not last and you didn't have the money to get more?: Never true Within the past 12 months, did you worry whether your food would run out before you got money to buy more?: Never true Do you have trouble paying for medicines?: No Do you have trouble getting transportation to medical appointments?: No Do you have trouble paying your heating and electricity bill?: No Do you have trouble taking care of your child, family member or friend?: No Do you have trouble with day-to-day activities such as bathing, preparing meals, shopping, managing finances, etc.?: No Are you currently unemployed and looking for a job?: No Are you interested in more education?: No THRIVE Score: 0 AUDIT C Alcohol Use Questionnaire (AUDIT-C) 1. How often do you have a drink containing alcohol?: Never 3. How often do you have six or more drinks on one occasion?: Never Total Score: 0 Score Reviewed/Action Taken: Yes ELLIE-7 AMB Questionnaire ELLIE-7 Date ELLIE - 7 assessed: 01/05/23 Feeling nervous, anxious, or on edge: 0 = Not at all Not being able to stop or control worryin = Several days Worrying too much about different things: 1 = Several days Trouble relaxin = Several days Being so restless that it is hard to sit still: 0 = Not at all Becoming easily annoyed or irritable: 1 = Several days Feeling afraid as if something awful might happen: 0 = Not at all Total ELLIE-7 score (0-4 normal; 5-9 mild; 10-14 moderate; 15-21 severe): 4 Source: Developed by Drs. Beto Gomez, Rupinder Mccullough, Reggie Sena and colleagues, with an educational rashida from [employer]. Review of Systems Const Reports fatigue, Denies fever(s) and Denies weakness Eyes Details: sees dr bolaños Denies change in vision and Reports requires corrective lenses ENT Reports no additional complaints Card Denies chest pain, Denies lightheadedness, Denies palpitations and Denies dyspnea Resp Denies chest congestion, Denies dyspnea and Denies wheezing GI Denies abdominal pain, Denies change in bowel habits, Denies dyspepsia, Denies heartburn and Denies nausea Denies hematuria, Denies urinary frequency, Denies dysuria and Denies urinary urgency Musc Reports abnormal gait, Reports arthralgias (Right popliteal fossa), Reports joint swelling (Mild in both knees), Denies muscle cramps, Denies muscle weakness and Reports stiffness Skin/Breast Denies rash Neuro Reports abnormal gait and Denies weakness Psych Details: Currently followed by psychiatry Reports no additional complaints Endo Reports fatigue, Denies polydipsia, Denies polyuria and Denies palpitations Yovany/Lymph Denies easy bruising Aller/Immun Denies seasonal rhinorrhea and Denies wheezing Physical exam (Primary Care) Vital Signs: Last Vital Signs Pulse 99 02/08/24 12:04 BP 150/80 H 02/08/24 12:04 Pulse Ox 97 02/08/24 12:04 Oxygen Delivery Method Room Air 02/08/24 12:04 BMI result Body Mass Index 34.3 Tobacco/Smoking Status: Tobacco use Status Tobacco use date assessed 02/08/24 02/08/24 12:06 Patient Tobacco Use Status Former Tobacco user 02/08/24 12:06 e-Cigarette/Vaping Use Never Used 02/08/24 12:06 Depression Screening Interpretation: Positive Depression Screening Follow-up: Existing condition, In treatment and Community Mental Health Worker F/U Thrive Assessment: Date of Thrive Assessment Date Thrive assessed 01/05/23 02/08/24 12:06 Const General: comfortable, alert and awake Orientation/consciousness: patient oriented x3 HENMT Head: Yes normocephalic Ears: hearing grossly normal bilaterally, TM's normal bilaterally and EAC's normal General nose exam: Normal external nose present Eyes General: appearance normal, both eyes and all related structures Neck Neck: Yes full ROM and Yes no lymphadenopathy Chest Breast/axilla palpation: normal palpation of the breasts Resp Auscultation: clear to auscultation bilaterally Cardio Rate: regular rate Rhythm: regular rhythm Heart sounds: S1 normal heart sound present and S2 normal heart sound present Bruits: no abdominal aortic bruits GI Inspection: Yes normal to inspection and No obesity Palpation (GI): No Abdominal aortic bruit present, Soft to palpation, nontender, no guarding and no masses Skin General skin exam: no rashes or lesions noted Neuro General: patient oriented x3 Extrem General: Yes full ROM, Yes no joint enlargement, Yes no clubbing, cyanosis or edema and Yes normal gait Assessment and Plan Assessment & Plan (1) Annual visit for general adult medical examination with abnormal findings: Code(s): Z00.01 - Encounter for general adult medical examination with abnormal findings Plan: Will check appropriate labs. Recommended dental visit every 6 months and regular eye exams, at least every 2 years. Take adequate calcium in diet and vitamin-D 3 at 2000 IU per cap once a day, in addition to weight-bearing exercises to help maintain good muscle tone and weight control. Instructed to do self-testicular exam check for any mass. Screening mammogram ordered. Received COVID vaccines in the past but does not want to get the booster, up-to-date with her flu shot, reminded to get her to Tdap booster, and Shingrix vaccine (2) Popliteal pain: Code(s): M79.609 - Pain in unspecified limb Plan: Ordered a repeat venous Doppler ultrasound of lower extremity on right, to rule out any beginning blood clot. Labs ordered to check , sed rate, CRP. Referral also made for her to be seen by Physical therapy for further evaluation manage ment (3) Anxiety and depression: Comment: Followed by Jacklyn chavez Code(s): F41.9 - Anxiety disorder, unspecified; F32.A - Depression, unspecified Plan: Followed by Psychiatry and therapist regularly, currently on venlafaxine, top iramate, and buspirone (4) Obesity (BMI 30.0-34.9): Code(s): E66.9 - Obesity, unspecified Plan: . Recommended focusing on improving health instead of dieting. Mediterranean diet is a healthy diet that helps, limit food high in fat, sugar, and calories. Eat slowly, pay attention to portion sizes, plan your meals ahead of time, start regular physical activity, at least 150 minutes of moderate intensity exercise, or 90 minutes per week of vigorous exercise. Keeping a food diary, tracking what you eat and your physical activity can help assess what improvements you can make. There are many health problems associated with being overweight/obese, so it is important to improve your diet and exercise. There are medications and surgical options available, but Lifestyle changes are the 1st step. (5) Former cigarette smoker: Comment: Quit 08/2023 Code(s): Z87.891 - Personal history of nicotine dependence Plan: Patient strongly advised to stop smoking, as smoking damages blood vessels, degenerative of joints and spine, damage to lungs and heart., predisposes to developing certain cancers like lung, breast, bladder, colon. Recommended to try decreasing cigarette use by 1-2 cigarettes a day. Advised to monitor what triggers are for smoking so that this can be discussed on the next office visit. We can discuss different options to quit smoking when ready. Received COVID vaccines in the past but does not want to get the booster, up-to-date with her flu shot, reminded to get her to Tdap booster, and Shingrix vaccine Orders: Orders Lipid Panel 02/08/24 E66.9 - Obesity, unspecified, F32.A - Depression, unspecified, F41.9 - Anxiety disorder, unspecified, M25.561 - Pain in right knee, Z87.891 - Personal history of nicotine dependence Vitamin D 25-OH Total 02/08/24 E66.9 - Obesity, unspecified, F32.A - Depression, unspecified, F41.9 - Anxiety disorder, unspecified, M25.561 - Pain in right knee, Z87.891 - Personal history of nicotine dependence CRP High Sensitivity 02/08/24 E66.9 - Obesity, unspecified, F32.A - Depression, unspecified, F41.9 - Anxiety disorder, unspecified, M25.561 - Pain in right knee, Z87.891 - Personal history of nicotine dependence Comprehensive Geddes. Panel Fast 02/08/24 E66.9 - Obesity, unspecified, F32.A - Depression, unspecified, F41.9 - Anxiety disorder, unspecified, M25.561 - Pain in right knee, Z87.891 - Personal history of nicotine dependence MM tomosynthesis screening BI 02/08/24 Z12.31 - Encounter for screening mammogram for malignant neoplasm of breast US venous duplex LE RT 02/08/24 E66.9 - Obesity, unspecified, F32.A - Depression, unspecified, F41.9 - Anxiety disorder, unspecified, M25.561 - Pain in right knee, M79.609 - Pain in unspecified limb, Z87.891 - Personal history of nicotine dependence Complete Blood Count Auto Diff 02/08/24 E66.9 - Obesity, unspecified, F32.A - Depression, unspecified, F41.9 - Anxiety disorder, unspecified, M25.561 - Pain in right knee, Z87.891 - Personal history of nicotine dependence Erythrocyte Sedimentation Rate 02/08/24 E66.9 - Obesity, unspecified, F32.A - Depression, unspecified, F41.9 - Anxiety disorder, unspecified, M25.561 - Pain in right knee, Z87.891 - Personal history of nicotine dependence PT Evaluation and Treatment 02/08/24 M25.561 - Pain in right knee Medications: New tramadol 50 mg PO BID PRN 10 tabs 0RF pain Discontinued cyclobenzaprine Discontinued Reason: Doctor's Order 10 mg PO BEDTIME PRN 30 tabs 0RF muscle spasm Review Declined Pap Smear: 02/08/24 Patient declined Colonoscopy: 02/08/24 Patient declined Colon Cancer Screen Lab: 02/08/24 Flu Vaccine not done: patient reason Coding Level of Care Code Est Pt Level 3 (67166) Est Pt Prev Care 40-64y(89704) Diagnoses Annual visit for general adult medical examination with abnormal findings Z00.01 Popliteal pain M79.609 Anxiety and depression F41.9; F32.A Obesity (BMI 30.0-34.9) E66.9 Former cigarette smoker Z87.891
== END 2024-02-08 14:00 | disposition home or self-care (01) ==
PROVIDERS: PCP Internal Medicine; Visit Provider Internal Medicine
DX: Z00.01 Encounter for general adult medical examination with abnormal findings (principal); M79.609 Pain in unspecified limb; F41.9 Anxiety disorder, unspecified; F32.A Depression, unspecified; E66.9 Obesity, unspecified; Z87.891 Personal history of nicotine dependence
CPT/HCPCS: 99213; 99396

== ENCOUNTER 2024-02-10 08:48 | Outpatient (REF) | payer OTHER, SELFPAY ==
--- NOTE | ~2024-02-10 | US_ITS ---
EXAMINATION: US VENOUS ULTRASOUND WITH DOPPLER LOWER EXTREMITY, RIGHT CLINICAL INFORMATION: Pain in right popliteal fossa. COMPARISON: 01/25/2024 TECHNIQUE: Ultrasound of the deep veins is performed from the hip to the calf with compression sonography and color and pulse Doppler assessment. Spectral analysis with color-flow imaging is performed. FINDINGS: There is normal venous compression and respiratory variation and augmented flow. The visualized common femoral vein, superficial femoral vein, profunda femoral vein, popliteal vein, and the trifurcation region shows no evidence of deep venous thrombosis. There is no significant popliteal fossa cyst. Benign-appearing right inguinal lymph node measures 2.0 x 0.7 x 2.7 cm. If the patient's symptoms persist, followup ultrasound in 5 days 7 days might be of value to exclude proximal propagation from a non-visualized calf vein. US/US venous duplex LE RT IMPRESSION: No DVT demonstrated in the right lower extremity.
[2024-02-10 10:24] LABS: MANUAL DIFF FLAG NO
[2024-02-10 10:37] LABS: Basophils Absolute Auto 0.1 X10*3/uL (0.0-0.2); Basophils Percent Auto 0.8 % (0-2); Eosinophils Absolute Auto 0.2 X10*3/uL (0.0-0.4); Eosinophils Percent Auto 2.6 % (0-4); Hemoglobin 12.9 g/dl (12.0-16.0); Imm Gran Abs Auto 0.03 X10*3/uL (0.00-0.03); Imm Gran Pct Auto 0.5 % (0.0-0.4); Lymphocytes Percent Auto 30.9 % (20-40); Mean Corpuscular HGB Conc 33.1 g/dl (31.0-35.0); Mean Corpuscular Hemoglobin 29.8 pg (27.0-33.0); Mean Corpuscular Volume 90.1 fL (80.0-98.0); Mean Platelet Volume 8.8 fL (9.4-12.3); Monocytes Absolute Auto 0.4 X10*3/uL (0.1-1.2); Monocytes Percent Auto 5.3 % (2-11); Neutrophils Percent Auto 59.9 % (45-73); Platelet Count 381 X10*3/uL (160-400); Red Blood Count 4.33 X10*6/uL (4.20-5.50); Red Cell Distribution Width 13.1 % (11.0-16.0); White Blood Count 6.6 X10*3/uL (4.8-10.8)
[2024-02-10 11:01] LABS: Alanine Aminotransferase 19 U/L (0-31); Albumin Level 4.3 g/dL (3.5-5.0); Alkaline Phosphatase 91 U/L (39-117); Anion Gap 12 (12-20); Aspartate Amino Transferase 19 U/L (5-31); Bilirubin Total 0.3 mg/dL (0.0-1.0); Blood Urea Nitrogen 21 mg/dL (9-16); Calcium 9.8 mg/dL (8.4-10.2); Carbon Dioxide 24 mmol/L (22-29); Chloride 105 mmol/L (96-108); Cholesterol 205 mg/dL (<200); Estimated Glomerular Filt Rate > 60; Glucose Fasting 82 mg/dL (60-99); HDL Cholesterol 48 mg/dL (>40); LDL Cholesterol Calculated 121 mg/dL (<100); Potassium 4.1 mmol/L (3.3-5.1); Sodium 137 mmol/L (135-145); Total Protein 7.2 g/dL (6.5-8.0); Triglycerides 181 mg/dL (<150)
[2024-02-10 11:02] LABS: Vitamin D 25-OH Total 50.8 ng/mL (>30)
[2024-02-10 11:16] LABS: Erythrocyte Sedimentation Rate 11 MM/HR (0-20)
== END 2024-02-10 08:49 | disposition home or self-care (01) ==
LOC: HO.HMGCX 08:48
PROVIDERS: PCP Internal Medicine; Visit Provider Internal Medicine
DX: M25.561 Pain in right knee (principal); E66.9 Obesity, unspecified; F41.9 Anxiety disorder, unspecified; F32.A Depression, unspecified; Z87.891 Personal history of nicotine dependence; M79.604 Pain in right leg
CPT/HCPCS: 36415; 80053; 80061; 82306; 85025; 85652; 86141; 93971

== ENCOUNTER 2024-02-13 12:41 | Outpatient (AMB) | payer OTHER, SELFPAY ==
--- NOTE | 2024-02-13 12:52 | MHC.PC.OV ---
Vital Signs 02/13/24 12:54 Height 5 ft 3 in Weight 194 lb BMI 34.4 BP 132/88 Blood Pressure Location Rt brachial Position Sitting Pulse 102 H Pulse Oximetry (%) 98 Oxygen Delivery Method Room Air Intake Visit Reasons: Rt lower extremity f/u Intake Note: pt is here for f/u RT lower extremity Allergies N.K.D.A. Allergy (Unknown, Uncoded 02/17/24 13:06) unknown Medication List - Last Reconciled 02/17/24 by Sara Cid MD albuterol sulfate 90 mcg/actuation (Ventolin HFA) 2 puffs inhalation Q6H PRN buspirone 15 mg PO TID famotidine 20 mg PO DAILY fluticasone propionate 50 mcg/actuation (Flonase Allergy Relief) 1 spray intranasal DAILY loratadine 10 mg PO DAILY nabumetone 500 mg PO BID PRN tizanidine 4 mg PO BID PRN topiramate 50 mg PO BID venlafaxine ER 150 mg PO DAILY Tobacco use date assessed: 02/13/24 Dental Screening Dental Screen Date: 02/13/24 HPI Rt lower extremity f/u HPI Details 58-year-old lady here today for follow-up on results of her venous Doppler ultrasound of right lower extremity. It did not show presence of any deep vein thrombosis. Patient states that her leg pain is improving with doing stretches and taking tizanidine as needed. Has hypertriglyceridemia, mild intermittent asthma, currently stable controlled. Has quit smoking earlier this year, uses albuterol only as needed for episodes of bronchospasm and wheezing. Recent fasting labs showed elevated triglycerides still at 181 mg/dL., but the rest of her labs which includes a fasting glucose, liver enzymes electrolytes renal function and vitamin-D level were all within normal limits [facility] Medical History (Updated 02/17/24 @ 13:27 by Sara Cid MD) Hypertriglyceridemia Former cigarette smoker Posterior right knee pain Obesity (BMI 30.0-34.9) Anxiety and depression Tinea corporis Polyarthralgia Allergic rhinitis History of cataract History of alcohol abuse History of cocaine abuse Osteoarthritis of knees, bilateral Surgical History History of breast surgery History of cataract surgery Family History Father Unknown family medical history Mother Diabetes mellitus Myocardial infarction Arthritis CVD (cardiovascular disease) Substance use disorder Mental health disorder Brother Myocardial infarction Intestinal hernia Diabetes mellitus Sister Anorexic Bipolar disorder Asthma Brain tumor Substance use disorder Mental health disorder Social History Household Members Other:: mother Housing: House Alcohol intake: former Patient Tobacco Use Status: Former Tobacco user Cigarettes Per Day: 10 e-Cigarette/Vaping Use: Never Used service: No Current occupational status: employed Cognitive needs: No Hearing needs: No Vision needs: Yes Questionnaire Thrive Questionnaire Date Thrive assessed: 02/08/24 ELLIE-7 AMB Questionnaire ELLIE-7 Date ELLIE - 7 assessed: 01/05/23 Source: Developed by Drs. Beto Gomez, Rupinder Mccullough, Reggie Sena and colleagues, with an educational rashida from [employer]. Review of Systems Const Denies fever(s) and Denies weakness Eyes Details: sees dr bolaños Denies change in vision and Reports requires corrective lenses ENT Reports no additional complaints Card Denies chest pain, Denies lightheadedness, Denies palpitations and Denies dyspnea Resp Denies chest congestion, Denies dyspnea and Denies wheezing GI Denies abdominal pain, Denies change in bowel habits, Denies dyspepsia, Denies heartburn and Denies nausea Denies hematuria, Denies urinary frequency, Denies dysuria and Denies urinary urgency Musc Reports as per HPI, Denies joint swelling, Denies muscle weakness and Reports stiffness Skin/Breast Denies rash Neuro Denies weakness Psych Details: Currently followed by psychiatry Reports no additional complaints Endo Denies polydipsia, Denies polyuria and Denies palpitations Yovany/Lymph Denies easy bruising Aller/Immun Denies seasonal rhinorrhea and Denies wheezing Physical exam (Primary Care) Vital Signs: Last Vital Signs Pulse 102 H 02/13/24 12:54 BP 132/88 02/13/24 12:54 Pulse Ox 98 02/13/24 12:54 Oxygen Delivery Method Room Air 02/13/24 12:54 BMI result Body Mass Index 34.4 Tobacco/Smoking Status: Tobacco use Status Tobacco use date assessed 02/13/24 02/13/24 12:57 Patient Tobacco Use Status Former Tobacco user 02/13/24 12:57 e-Cigarette/Vaping Use Never Used 02/13/24 12:57 Thrive Assessment: Date of Thrive Assessment Date Thrive assessed 02/08/24 02/13/24 12:57 Const General: comfortable, alert and awake Orientation/consciousness: patient oriented x3 HENMT Head: Yes normocephalic Ears: hearing grossly normal bilaterally, TM's normal bilaterally and EAC's normal General nose exam: Normal external nose present Eyes General: appearance normal, both eyes and all related structures Neck Neck: Yes full ROM and Yes no lymphadenopathy Resp Auscultation: clear to auscultation bilaterally Cardio Rate: regular rate Rhythm: regular rhythm Heart sounds: S1 normal heart sound present and S2 normal heart sound present Bruits: no abdominal aortic bruits GI Inspection: Yes normal to inspection and No obesity Palpation (GI): No Abdominal aortic bruit present, Soft to palpation, nontender, no guarding and no masses Skin General skin exam: no rashes or lesions noted Neuro General: patient oriented x3 Extrem General: Yes full ROM, Yes no joint enlargement, Yes no clubbing, cyanosis or edema, No no calf tenderness and Yes normal gait Results Reviewed Results Reviewed: Name: Raine Fields Age/Sex: 58/F : 1965 Unit#: [id number] Attend Dr: Sara Cid MD Re02/10/24 Status: DEP REF Location: [facility] Disch: SPEC : [id number] JAD: 02/10/24 STATUS: COMP REQ : [id number] RECD: 02/10/[address]: Sara Cid MD COMP: 02/10/24 ENTERED: 02/10/[address]: ORDERED: CBC Auto Diff Test Result Flag Reference WBC 6.6 4.8-10.8 X10*3/uL RBC 4.33 4.20-5.50 X10*6/uL HGB 12.9 12.0-16.0 g/dl HCT 39.0 37.0-47.0 % MCV 90.1 80.0-98.0 fL MCH 29.8 27.0-33.0 pg MCHC 33.1 31.0-35.0 g/dl RDW 13.1 11.0-16.0 % PLT 381 160-400 X10*3/uL MPV 8.8 L 9.4-12.3 fL Neut Pct Auto 59.9 45-73 % ImGran Pct Auto 0.5 H 0.0-0.4 % Lymp Pct Auto 30.9 20-40 % Coffee Pct Auto 5.3 2-11 % Eos Pct Auto 2.6 0-4 % Baso Pct Auto 0.8 0-2 % NRBC Pct Auto 0.0 0.0-0.2 /100WBC ANC Neut Abs # 4.0 2.0-8.3 x10*3/uL ImGran Abs Auto 0.03 0.00-0.03 X10*3/uL Lymph Abs Auto 2.0 1.2-4.9 X10*3/uL Coffee Abs Auto 0.4 0.1-1.2 X10*3/uL Eos Abs Auto 0.2 0.0-0.4 X10*3/uL Baso Abs Auto 0.1 0.0-0.2 X10*3/uL NRBC Abs Auto 0.000 0.0-0.012 X10*3/uL Name: Raine Fields Age/Sex: 58/F : 1965 Unit#: [id number] Attend Dr: Sara Cid MD Re02/10/24 Status: DEP REF Location: [facility] Disch: SPEC : [id number] JAD: 02/10/24 STATUS: COMP REQ : [id number] RECD: 02/10/24-[address]: Sara Cid MD COMP: 02/10/242 ENTERED: 02/10/[address]: ORDERED: CMP Fast, Lipid Panel, Vitamin D 25-OH Test Result Flag Reference Sodium 137 135-145 mmol/L Potassium 4.1 3.3-5.1 mmol/L CL 105 96-108 mmol/L CO2 24 22-29 mmol/L Gap 12 12-20 BUN 21 H 9-16 mg/dL Creat 0.88 0.5-1.4 mg/dL EGFR > 60 NOTE: For -Citizen Of [place] individuals, multiply the result by 1.210. Chronic Kidney Disease: Estimated GFR < 60 mL/min/1.73m2 Severe Kidney Disease: Estimated GFR < 15 mL/min/1.73m2 FBS 82 60-99 mg/dL CA 9.8 8.4-10.2 mg/dL Total Bili 0.3 0.0-1.0 mg/dL AST (GOT) 19 5-31 U/L ALT (GPT) 19 0-31 U/L Protein, Total 7.2 6.5-8.0 g/dL Alb 4.3 3.5-5.0 g/dL Triglyceride 181 H <150 mg/dL Desirable Triglyceride: less than 150 mg/dL Borderline High Triglyceride 150-199 mg/dL High Triglyceride: 200-499 mg/dL Very High Triglyceride: greater than or equal to 5OO mg/dL Cholesterol 205 H <200 mg/dL Desirable Cholesterol: less than 200 mg/dL Borderline High Cholesterol: 200-239 mg/dL High Cholesterol: greater than 239 mg/dL LDL Calculated 121 H <100 mg/dL Desirable LDL: less than 100 mg/dL Near Optimal/Above Optimal LDL: 110-129 mg/dL Borderline High LDL: 130-159 mg/dL High LDL: 160-189 mg/dL Very High LDL: greater than or equal to 190 mg/dL HDL 48 >40 mg/dL Desirable HDL: greater than 40 mg/dL Note: This HDL assay may give artificially low results in patients with liver disease. Alk Phos 91 39-117 U/L Vit D 25-OH Tot 50.8 >30 ng/mL Health Based Reference Values* < 20 ng/mL Deficient 20-30 ng/mL Insufficient > 30 ng/mL Sufficient Assessment and Plan Assessment & Plan (1) Hypertriglyceridemia: Code(s): E78.1 - Pure hyperglyceridemia Plan: Explained to patient that her triglycerides are elevated. This raises your risk of atherosclerosis and related heart diseases. Lifestyle changes are vital to managing this condition. You may need to reduce your intake of sugar, refined carbs and alcohol. (2) Muscle spasm of right leg: Code(s): M62.838 - Other muscle spasm Plan: Improving, continue with tizanidine 4 mg 1 tablet twice a day as needed, has appointment for physical therapy 02/29/2024 Medications: New tizanidine 4 mg PO BID PRN 20 tabs 0RF muscle spasticity Coding Level of Care Code Est Pt Level 4 (30443) Diagnoses Hypertriglyceridemia E78.1 Muscle spasm of right leg M62.838
[2024-02-13 12:54] VITALS: BP 132/88; PULSE 102; O2SAT 98; BMI 34.4
== END 2024-02-13 13:43 | disposition home or self-care (01) ==
PROVIDERS: PCP Internal Medicine; Visit Provider Internal Medicine
DX: E78.1 Pure hyperglyceridemia (principal); M62.838 Other muscle spasm
CPT/HCPCS: 99214

== ENCOUNTER 2024-03-08 13:30 | Outpatient (REF) | payer SELFPAY ==
--- NOTE | 2024-03-08 14:26 | MHC.AU.HA3 ---
Hearing Instrument Follow-Up- Binaural Date of Visit: 03/08/24 Right Ear: Hank, Model, Color, Serial Number: Oticon OPN 3 miniRITE-T SN: [id number] Slab Stripper Repair Warranty: 11/05/2019 Slab Stripper Loss and Damage Warranty: 11/05/2019 Battery Size: 312 Bit Welder/Slim Tube: 2/85 Earmold/Dome/CShell/SlimTip:6mm open dome with retention tail Type of Wax Guard: miniFit Dispensed By: [facility] Date of Fitting: [facility] September 2017 Left Ear: Hank, Model, Color, Serial Number: Oticon OPN 3 miniRITE-T SN: [id number] Slab Stripper Repair Warranty: 11/05/2019 Slab Stripper Loss and Damage Warranty: 11/05/2019 Battery Size: 312 Bit Welder/Slim Tube: 2/85 Earmold/Dome/CShell/SlimTip: 6mm open dome with retention tail Type of Wax Guard: miniFit Dispensed By: [facility]: [facility] Summary: Previous patient at [facility], deciding to transfer care. Left hearing aid currently not working. Wax guard occluded. Cleaned both hearing aids. Replaced domes and wax guards. Vacuumed microphones. Ran through dehumidifier. Listening check demonstrated hearing aids amplifying clearly. Connected to QingKe to read settings (noted double kennedy domes in Genie but open domes on hearing aids). Updated firmware. Raien has hearing test scheduled 03/15/2024. Provided [facility] contact information to start the process to see if she is eligible for new hearing aids through [facility]. Recommendations: Hearing instrument follow-up or maintenance as needed. Please contact our clinic with any questions or concerns. Diagnosis Code(s): Primary Diagnosis: H90.3 Bilateral Sensorineural Hearing Loss Signature: Provider: Joseph Jara, [facility]
== END 2024-03-08 13:31 | disposition home or self-care (01) ==
LOC: HO.HAP 13:30
PROVIDERS: Visit Provider Internal Medicine
DX: Z46.1 Encounter for fitting and adjustment of hearing aid (principal); H90.3 Sensorineural hearing loss, bilateral
CPT/HCPCS: 92593

== ENCOUNTER 2024-03-15 14:00 | Outpatient (RCR) | payer OTHER, SELFPAY ==
--- NOTE | 2024-02-29 10:10 | MHC.PT.EP ---
[facility] [place] [facility] [place] [facility] [place] [facility] [address] [phone] F: [phone] F: [phone] F: [phone] F: [phone] Physical Therapy Plan of Care Date of Evaluation: 02/29/24 Date of Surgery: Diagnosis: R knee pain Assessment: Patient is a 58 year old R handed female who presents with s/s consistent with R knee pain. 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 Patient past medical history includes knee OA, anxiety, depression and substance abuse. Current impairments include pain, balance, ROM, strength, activity tolerance and functional mobility. Functional limitations include decreased ability to walk, stand, transfer, be active, and work on feet. Patient is motivated with good rehab potential. Skilled PT will address impairments and functional limitations in order to achieve goals. Frequency and Duration: The patient will be seen 2x/week for 5 weeks Short Term Goals: I with HEP - 2 weeks AROM 0 - 120 - 3 weeks Able to walk 10 minutes without pain - 3 weeks Sock Ironer Goals: Strenght 4+/5 grossly - 5 weeks LEFS 40/80 - 5 weeks AROM 0-126 - 5 weeks Pain free return to all work duties - 5 weeks Treatment Plan: Modalities to reduce pain, spasms and effusion. Manual therapy to restore motion and function. Therapeutic exercise to improve strength and flexibility. Neuromuscular re-education for posture and balance. Therapeutic activities to return to functional activities of daily living. Electronically signed by: Wesley Rodgers, PT Please sign and return to therapist. Thank you for your referral.
--- NOTE | 2024-09-05 09:46 | MHC.PT.DC ---
[facility] [place] [facility] [place] [facility] [place] [facility] [address] [phone] F: [phone] F: [phone] F: [phone] F: [phone] Physical Therapy Discharge Report Diagnosis: R knee pain Date of Surgery: Date of Evaluation: 02/29/24 Date of Discharge: 04/08/24 Treatments to Date: 2 Cancellations to Date: No Shows to Date: Discharge Status: Patient Elected to Stop Discharge Summary: 03/15/24: pt with increased s/s today. notes min compliance with HEP. expressed desire for MRI. encouraged her to try HEP to know if it will be beneficial. issued GTB. Patient is a 58 year old R handed female who presents with s/s consistent with R knee pain. 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 Patient past medical history includes knee OA, anxiety, depression and substance abuse. Current impairments include pain, balance, ROM, strength, activity tolerance and functional mobility. Functional limitations include decreased ability to walk, stand, transfer, be active, and work on feet. Patient is motivated with good rehab potential. Skilled PT will address impairments and functional limitations in order to achieve goals. Electronically signed by: Wesley Rodgers, PT Please sign and return to therapist. Thank you for your referral.
== END 2024-09-05 09:47 | disposition home or self-care (01) ==
LOC: HO.PTCHIC 14:00
PROVIDERS: PCP Internal Medicine; Visit Provider Internal Medicine
DX: M25.561 Pain in right knee (principal)
CPT/HCPCS: 97110; 97163; 97535

== ENCOUNTER 2024-08-06 10:53 | Outpatient (REF) | payer OTHER, SELFPAY ==
[2024-08-06 17:59] LABS: Influenza A PCR NEGATIVE (Negative); Influenza B PCR NEGATIVE (Negative); Resp Syncy Virus RNA Qual PCR NEGATIVE (Negative); SARS COV2 PCR INHOUSE NEGATIVE (Negative)
== END 2024-08-06 10:54 | disposition home or self-care (01) ==
LOC: HO.LNP 10:53
PROVIDERS: PCP Internal Medicine; Visit Provider Physician Assistant
DX: J06.9 Acute upper respiratory infection, unspecified (principal); H66.002 Acute suppurative otitis media without spontaneous rupture of ear drum, left ear; B34.9 Viral infection, unspecified
CPT/HCPCS: 0241U; 99212

== ENCOUNTER 2024-08-06 10:53 | Outpatient (AMB) | payer OTHER, SELFPAY ==
--- NOTE | 2024-08-06 13:00 | AM.OFFWIN_ITS ---
Intake Vital Signs 08/06/24 13:06 Weight 196 lb BP 140/90 H Blood Pressure Location Lt brachial Position Sitting Pulse 77 Pulse Source Pulse Oximeter Temp 97.8 F Temp Source Oral Pulse Oximetry (%) 98 Oxygen Delivery Method Room Air Intake Visit Reasons: EP body aches, ear ache Intake Note: Patient here for body aches, ear pain,fever and diarrhea that has been present for about 2-3 days. Patient Tobacco Use Status: Former Tobacco user Allergies N.K.D.A. Allergy (Unknown, Uncoded 08/06/24 13:06) unknown Do you need a note to return to daycare/school/sports/work: No HPI HPI Comments History of Present Illness Details History - The patient is a 59-year-old female pr esenting with sore throat, ear pain, chills, and diarrhea x 3 days. - Notable symptoms include unilateral le ft sided lymph node swelling with left ear pain on the affected side and associated chills. - Black stool occurred once amid episode s of diarrhea, raising concerns for potential gastrointestinal issues, though the patient denies any known history of gastrointestinal bleeding or pepto bismol use. - Presence of sweating profusely at nigh t suggests potential fever, yet no definitive measurement was noted. - The patient denies exacerbation of DELPHI DEVELOPER D symptoms such as shortness of breath or wheezing, though she reported an emerging cough. - The patient's history is significant f or chronic obstructive pulmonary disease, currently managed with as-needed inhaler use. Physical Exam General: Cooperative, healthy appearing, comfortable and no acute distress Orientation/consciousness: Patient oriented x3 Limitations: No limitations Head: Normal to inspection Ears: Hearing grossly normal bilaterally, external ears normal and TM's normal right, TM left has purulent effusion Nose: Normal external nose present, Normal nares present and No nasal discharge present Face and sinus: Normal facial exam and Yes sinuses nontender Mouth: Normal oral and palatal mucosa present and moist mucous membranes Throat: Yes tonsils normal, Yes uvula midline. Posterior oropharynx erythema. No exudates present Eyes: Appearance normal, both eyes and all related structures Neck: Normal visual inspection. Swollen glands on the left side Respiratory: Clear to auscultation bilaterally. Normal respiratory effort, able to speak in complete sentences, Actively coughing, no respiratory distress, not tachypneic, no tripod positioning and no use of accessory muscles Cardiovascular: Regular rate and rhythm. Normal S1 and S2 Skin: No rashes or lesions noted Neuro: Patient oriented x3 Extremities: Normal to inspection and Yes no clubbing, cyanosis or edema [facility] History (Updated 08/06/24 @ 13:34 by Chata Carcamo PA-C) Hearing loss Hypertriglyceridemia Former cigarette smoker Posterior right knee pain Obesity (BMI 30.0-34.9) Anxiety and depression Tinea corporis Polyarthralgia Allergic rhinitis History of cataract History of alcohol abuse History of cocaine abuse Osteoarthritis of knees, bilateral Surgical History History of breast surgery History of cataract surgery Family History Father Unknown family medical history Mother Diabetes mellitus Myocardial infarction Arthritis CVD (cardiovascular disease) Substance use disorder Mental health disorder Brother Myocardial infarction Intestinal hernia Diabetes mellitus Sister Anorexic Bipolar disorder Asthma Brain tumor Substance use disorder Mental health disorder Social History Household Members Other:: mother Housing: House Alcohol intake: former Patient Tobacco Use Status: Former Tobacco user Cigarettes Per Day: 10 e-Cigarette/Vaping Use: Never Used service: No Current occupational status: employed Cognitive needs: No Hearing needs: No Vision needs: Yes Review of Systems Const All systems reviewed & are unremarkable except as noted in HPI and below Physical Exam Vital Signs: Last Vital Signs Temp 97.8 F 08/06/24 13:06 Pulse 77 08/06/24 13:06 BP 140/90 H 08/06/24 13:06 Pulse Ox 98 08/06/24 13:06 Oxygen Delivery Method Room Air 08/06/24 13:06 Assessment & Plan Assessment & Plan (1) Otitis media: Code(s): H66.90 - Otitis media, unspecified, unspecified ear Qualifiers: Otitis media type: suppurative Chronicity: acute Laterality: left Recurrence: non-recurrent Spontaneous tympanic membrane rupture: without spontaneous rupture Qualified Code(s): H66.002 - Acute suppurative otitis media without spontaneous rupture of ear drum, left ear Plan: Plan Amoxicillin was prescribed for the patient's acute otitis media, identified particularly in the left ear. The prescription sent to the designated pharmacy is intended for a five-day course, considering the option to extend treatment if necessary. Testing for respiratory viruses like influenza, COVID-19, and RSV was included due to systemic symptoms, although with lungs clear at the time of examination and VSS, no complaints of SOB or wheezeing, no chest imaging was executed. Notification will follow upon laboratory confirmation of viral identi fication to further understand the symptomatic etiology. The treatment primarily addresses bacterial components, whereas other symptoms possibly linked to viral causes will be expected to resolve on their own. Patient was informed and verbally consented to the use of an ambient scribe for clinic note documentation during this visit (2) Viral syndrome: Code(s): B34.9 - Viral infection, unspecified Plan: as above Medications: New amoxicillin 875 mg PO Q12H 10 tabs 0RF Coding Level of Care Code Est Pt Level 4 (95956) Diagnoses Non-recurrent acute suppurative otitis media of left ear without spontaneous rupture of tympanic membrane H66.002 Otitis media type: suppurative Chronicity: acute Laterality: left Recurrence: non-recurrent Spontaneous tympanic membrane rupture: without spontaneous rupture Viral syndrome B34.9
[2024-08-06 13:06] VITALS: BP 140/90; PULSE 77; TEMP 36.6; O2SAT 98
== END 2024-08-06 13:38 | disposition home or self-care (01) ==
PROVIDERS: PCP Internal Medicine; Visit Provider Physician Assistant
DX: H66.002 Acute suppurative otitis media without spontaneous rupture of ear drum, left ear (principal); B34.9 Viral infection, unspecified

== ENCOUNTER 2024-08-20 16:06 | Outpatient (AMB) | payer OTHER, SELFPAY ==
[2024-08-20 16:09] VITALS: BP 130/80; PULSE 90; O2SAT 99; BMI 34.7
--- NOTE | 2024-08-20 16:09 | AM.OFFWIN_ITS ---
Intake Vital Signs 08/20/24 16:09 Height 5 ft 3 in Weight 196 lb BMI 34.7 BP 130/80 Blood Pressure Location Lt brachial Position Sitting Pulse 90 Pulse Source Pulse Oximeter Pulse Oximetry (%) 99 Oxygen Delivery Method Room Air Intake Visit Reasons: EP-lt ear infection Intake Note: Pt is here today for a walk in visit. Pt c/o L ear pain for over a week now.Pt states that she was on Amoxicillin for ear ache and she finished it but the pain is still there. Patient Tobacco Use Status: Former Tobacco user Allergies N.K.D.A. Allergy (Unknown, Uncoded 08/20/24 16:12) unknown HPI HPI Comments History of Present Illness Details History - The patient is a 59-year-old female pr esenting with left ear pain. - Left ear pain commenced one week prior and remains unrelieved by a five-day Amoxicillin regimen. - Symptoms have exacerbated, now paired with a cough post-influenza and diarrhea episodes. - Previous antibiotic course perceived a s insufficient, as pt states she usually needs 7 days of abx to treat her ear infections. Physical Exam General: Cooperative, healthy appearing, comfortable and no acute distress Orientation/consciousness: Patient oriented x3 Limitations: No limitations Head: Normal to inspection Ears: Hearing grossly normal bilaterally, external ears normal and TM's normal on the right, left TM with purulent effusion Nose: Normal external nose present, Normal nares present and No nasal discharge present Face and sinus: Normal facial exam and Yes sinuses nontender Mouth: Normal oral and palatal mucosa present and moist mucous membranes Throat: Yes tonsils normal, Yes uvula midline. Posterior oropharynx erythema Eyes: Appearance normal, both eyes and all related structures Neck: Normal visual inspection Respiratory: Clear to auscultation bilaterally. Normal respiratory effort, able to speak in complete sentences, Actively coughing, no respiratory distress, not tachypneic, no tripod positioning and no use of accessory muscles Cardiovascular: Regular rate and rhythm. Normal S1 and S2 Skin: No rashes or lesions noted Neuro: Patient oriented x3 Extremities: Normal to inspection and Yes no clubbing, cyanosis or edema [facility] Medical History (Updated 08/06/24 @ 13:34 by Chata Carcamo PA-C) Hearing loss Hypertriglyceridemia Former cigarette smoker Posterior right knee pain Obesity (BMI 30.0-34.9) Anxiety and depression Tinea corporis Polyarthralgia Allergic rhinitis History of cataract History of alcohol abuse History of cocaine abuse Osteoarthritis of knees, bilateral Surgical History History of breast surgery History of cataract surgery Family History Father Unknown family medical history Mother Diabetes mellitus Myocardial infarction Arthritis CVD (cardiovascular disease) Substance use disorder Mental health disorder Brother Myocardial infarction Intestinal hernia Diabetes mellitus Sister Anorexic Bipolar disorder Asthma Brain tumor Substance use disorder Mental health disorder Social History Household Members Other:: mother Housing: House Alcohol intake: former Patient Tobacco Use Status: Former Tobacco user Cigarettes Per Day: 10 e-Cigarette/Vaping Use: Never Used service: No Current occupational status: employed Cognitive needs: No Hearing needs: No Vision needs: Yes Review of Systems Const All systems reviewed & are unremarkable except as noted in HPI and below Physical Exam Vital Signs: Last Vital Signs Pulse 90 08/20/24 16:09 BP 130/80 08/20/24 16:09 Pulse Ox 99 08/20/24 16:09 Oxygen Delivery Method Room Air 08/20/24 16:09 BMI result Body Mass Index 34.7 Assessment & Plan Assessment & Plan (1) Otitis media: Code(s): H66.90 - Otitis media, unspecified, unspecified ear Qualifiers: Otitis media type: suppurative Chronicity: acute Laterality: left Recurrence: non-recurrent Spontaneous tympanic membrane rupture: without spontaneous rupture Qualified Code(s): H66.002 - Acute suppurative otitis media without spontaneous rupture of ear drum, left ear Plan: Plan The left ear infection, having proven resistant to the initial Amoxicillin course, will be managed with Augmentin amoxicillin/clavulanate to ensure broader spectrum antibacterial coverage, administered twice daily for one week. Antihistamine therapy with Benadryl is recommended to manage fluid accumulation and support symptom relief and rest. The potential bacterial nature of the cough will be addressed by the continued antibiotic regimen. Pt declined rx for Tessalon Perles. Prescriptions have been routed to the patient's pharmacy at [facility], ensuring prompt availability of the revised therapeutic plan. Patient was informed and verbally consented to the use of an ambient scribe for clinic note documentation during this visit Medications: New amoxicillin-pot clavulanate 875-125 mg 1 tab PO Q12H 14 tabs 0RF Coding Level of Care Code Est Pt Level 3 (21635) Diagnoses Non-recurrent acute suppurative otitis media of left ear without spontaneous rupture of tympanic membrane H66.002 Otitis media type: suppurative Chronicity: acute Laterality: left Recurrence: non-recurrent Spontaneous tympanic membrane rupture: without spontaneous rupture
== END 2024-08-20 16:27 | disposition home or self-care (01) ==
PROVIDERS: PCP Internal Medicine; Visit Provider Physician Assistant
DX: H66.002 Acute suppurative otitis media without spontaneous rupture of ear drum, left ear (principal)

== ENCOUNTER → 2024-08-20 16:06 | Outpatient (BNVA) | payer OTHER, SELFPAY | PROVIDERS: PCP Internal Medicine; Visit Provider Physician Assistant | DX: H66.002 Acute suppurative otitis media without spontaneous rupture of ear drum, left ear (principal) | CPT/HCPCS: 99212 ==

== ENCOUNTER 2024-09-21 15:41 | Outpatient (AMB) | payer OTHER, SELFPAY ==
--- NOTE | 2024-09-21 16:18 | AM.OFFWIN_ITS ---
Intake Vital Signs 09/21/24 16:23 Weight 203 lb BP 120/80 Blood Pressure Location Rt brachial Position Sitting Pulse 92 Pulse Source Pulse Oximeter Temp 97.7 F Temp Source Oral Pulse Oximetry (%) 98 Oxygen Delivery Method Room Air Intake Visit Reasons: EP Ear infection Intake Note: Patient here for left ear pain that has been present for about 3 days. Patient Tobacco Use Status: Former Tobacco user Allergies N.K.D.A. Allergy (Unknown, Uncoded 09/21/24 16:23) unknown Do you need a note to return to daycare/school/sports/work: No HPI HPI Comments History of Present Illness Details History - The patient is a 59-year-old female pr esenting with acute ear pain and suspected ear infection recurrence. - Symptoms persisted three days prior, f ollowing incomplete resolution of a previous ear infection treated with Augmentin on August 20. - The patient has chronic sinus congesti on managed with Flonase nasal spray once daily. - Ear pain is described as radiating to the jaw and teeth, exacerbated by external pressure. - Use of hearing aids noted, with discom fort preventing ear cleaning practices. - Consideration of sinus-based nasal irr igation techniques discussed, though not previously adopted by the patient. Physical Exam General: Cooperative, healthy appearing, comfortable and no acute distress Orientation/consciousness: Patient oriented x3 Limitations: No limitations Head: Normal to inspection Ears: Hearing grossly normal bilaterally, external ears normal and TM's left with erythema, purulent effusion and tenderness with exam, right TM with cerumen Nose: Normal external nose present, Normal nares present and No nasal discharge present Face and sinus: Normal facial exam Eyes: Appearance normal, both eyes and all related structures Neck: Normal visual inspection Respiratory: Normal respiratory effort, able to speak in complete sentences, Actively coughing, no respiratory distress, not tachypneic, no tripod positioning and no use of accessory muscles Skin: No rashes or lesions noted Neuro: Patient oriented x3 Extremities: Normal to inspection and Yes no clubbing, cyanosis or edema [facility] Medical History (Updated 09/21/24 @ 16:43 by Chata Carcamo PA-C) Hearing loss Hypertriglyceridemia Former cigarette smoker Posterior right knee pain Obesity (BMI 30.0-34.9) Anxiety and depression Tinea corporis Polyarthralgia Allergic rhinitis History of cataract History of alcohol abuse History of cocaine abuse Osteoarthritis of knees, bilateral Surgical History History of breast surgery History of cataract surgery Family History Father Unknown family medical history Mother Diabetes mellitus Myocardial infarction Arthritis CVD (cardiovascular disease) Substance use disorder Mental health disorder Brother Myocardial infarction Intestinal hernia Diabetes mellitus Sister Anorexic Bipolar disorder Asthma Brain tumor Substance use disorder Mental health disorder Social History Household Members Other:: mother Housing: House Alcohol intake: former Patient Tobacco Use Status: Former Tobacco user Cigarettes Per Day: 10 e-Cigarette/Vaping Use: Never Used service: No Current occupational status: employed Cognitive needs: No Hearing needs: No Vision needs: Yes Review of Systems Const All systems reviewed & are unremarkable except as noted in HPI and below Physical Exam Vital Signs: Last Vital Signs Temp 97.7 F 09/21/24 16:23 Pulse 92 09/21/24 16:23 BP 120/80 09/21/24 16:23 Pulse Ox 98 09/21/24 16:23 Oxygen Delivery Method Room Air 09/21/24 16:23 Assessment & Plan Assessment & Plan (1) Otitis externa: Code(s): H60.90 - Unspecified otitis externa, unspecified ear Qualifiers: Otitis externa type: other infective Chronicity: acute Laterality: left Qualified Code(s): H60.392 - Other infective otitis externa, left ear Plan: The acute otitis media recurrence is managed with cefdinir, a cephalosporin alternative to previous Augmentin treatment, dosed at 300 mg twice daily for seven days. I RX'd ear drops for EAC tenderness and erythema Sinusitis is managed with increased Flonase use and consideration for a saline nasal spray or neti pot for better sinus clearance. Debrox drops are recommended for cerumen removal in the right ear. The patient is advised to return for a follow-up visit to evaluate symptom resolution and need for further intervention if required. Patient was informed and verbally consented to the use of an ambient scribe for clinic note documentation during this visit (2) Otitis media: Code(s): H66.90 - Otitis media, unspecified, unspecified ear Qualifiers: Otitis media type: suppurative Chronicity: acute Laterality: left R ecurrence: non-recurrent Spontaneous tympanic membrane rupture: without spontaneous rupture Qualified Code(s): H66.002 - Acute suppurative otitis media without spontaneous rupture of ear drum, left ear Plan: as above Medications: New ftlsbxfj-dwhkuiuzp-HC 3.5-10,000-1 mg/mL-unit/mL-% 4 drps otic (ears) Q8H 7 days 10 mL 0RF cefdinir 300 mg PO Q12H 14 caps 0RF Coding Level of Care Code Est Pt Level 4 (50127) Diagnoses Other infective acute otitis externa of left ear H60.392 Otitis externa type: other infective Chronicity: acute Laterality: left Non-recurrent acute suppurative otitis media of left ear without spontaneous rupture of tympanic membrane H66.002 Otitis media type: suppurative Chronicity: acute Laterality: left Recurrence: non-recurrent Spontaneous tympanic membrane rupture: without spontaneous rupture
[2024-09-21 16:23] VITALS: BP 120/80; PULSE 92; TEMP 36.5; O2SAT 98
== END 2024-09-21 16:46 | disposition home or self-care (01) ==
PROVIDERS: PCP Internal Medicine; Visit Provider Physician Assistant
DX: H60.392 Other infective otitis externa, left ear (principal); H66.002 Acute suppurative otitis media without spontaneous rupture of ear drum, left ear

== ENCOUNTER → 2024-09-21 15:41 | Outpatient (BNVA) | payer OTHER, SELFPAY | PROVIDERS: PCP Internal Medicine | DX: H60.392 Other infective otitis externa, left ear (principal) | CPT/HCPCS: 99212 ==

== ENCOUNTER 2024-12-17 08:15 | Outpatient (AMB) | payer OTHER, SELFPAY ==
--- NOTE | 2024-12-17 08:35 | A.OFFPC_ITS ---
Vital Signs 12/17/24 08:36 Height 5 ft 3 in Weight 211 lb BMI 37.4 BP 136/70 Blood Pressure Location Lt brachial Position Sitting Pulse 98 Pulse Source Pulse Oximeter Temp 97.7 F Temp Source Oral Pulse Oximetry (%) 98 Oxygen Delivery Method Room Air Intake Visit Reasons: discuss wgt loss option Intake Note: Pt is here today want to discuss wgt loss option Allergies N.K.D.A. Allergy (Unknown, Uncoded 12/17/24 09:01) unknown Medication List - Last Reconciled 12/17/24 by Sara Cid MD albuterol sulfate 90 mcg/actuation (Ventolin HFA) 2 puffs inhalation Q6H PRN buspirone 15 mg PO TID famotidine 20 mg PO DAILY fluticasone propionate 50 mcg/actuation (Flonase Allergy Relief) 1 spray intranasal DAILY loratadine 10 mg PO DAILY nabumetone 500 mg PO BID PRN tizanidine 4 mg PO BID PRN venlafaxine ER 150 mg PO DAILY Zepbound (tirzepatide (weight loss)) 2.5 mg (0.5 mL) subcut QWEEK NS Tobacco use date assessed: 12/17/24 Dental Screening Dental Screen Date: 12/17/24 Did you have a dental visit in the last 12 months?: No Did you have a dental problem in the last 6 months where you did not have access to dental care?: No Was dental information given to patient?: No HPI HPI Comments History of Present Illness Details 59-year-old lady with history of hypertr iglyceridemia, anxiety depression controlled on present treatment, and obesity, here today wanting help with losing weight. She has been adhering to a healthy diet, has been eating a lot of vegetables and fruit, avoiding carbs, has tried Atkins diet before but was unable to do it continuously and was not able to lose weight on it. She has also been exercising, walks regularly. [facility] Medical History Hearing loss Hypertriglyceridemia Former cigarette smoker Posterior right knee pain Obesity (BMI 30.0-34.9) Anxiety and depression Tinea corporis Polyarthralgia Allergic rhinitis History of cataract History of alcohol abuse History of cocaine abuse Osteoarthritis of knees, bilateral Surgical History History of breast surgery History of cataract surgery Family History Father Unknown family medical history Mother Diabetes mellitus Myocardial infarction Arthritis CVD (cardiovascular disease) Substance use disorder Mental health disorder Brother Myocardial infarction Intestinal hernia Diabetes mellitus Sister Anorexic Bipolar disorder Asthma Brain tumor Substance use disorder Mental health disorder Social History Household Members Other:: mother Housing: House Alcohol intake: former Patient Tobacco Use Status: Former Tobacco user Cigarettes Per Day: 10 e-Cigarette/Vaping Use: Never Used service: No Current occupational status: employed Cognitive needs: No Hearing needs: No Vision needs: Yes Questionnaire PHQ-9 Over the last 2 weeks, how often have you been bothered by any of the following problems? 1. Little interest or pleasure in doing things: not at all 2. Feeling down, depressed, or hopeless: not at all 3. Trouble falling or staying asleep, or sleeping too much: several days 4. Feeling tired or having little energy: several days 5. Poor appetite or overeating: several days 6. Feeling bad about yourself - or that you are a failure or have let yourself or your family down: not at all 7. Trouble concentrating on things, such as reading the newspaper or watching television: not at all 8. Moving or speaking so slowly that other people could have noticed. Or the opposite - being so fidgety or restless that you have been moving around a lot more than usual: not at all 9. Thoughts that you would be better off or of hurting yourself in some way: not at all Total score: 3 Depression Screening Interpretation: Negative (Controlled on medication, sees Psychiatry) Depression Screening Done: Yes 94019 - PHQ-9 Billing: Yes Source: Developed by Drs. Beto Gomez, Rupinder Mccullough, Reggie Sena and colleagues, with an educational rashida from [employer]. Thrive Questionnaire Date Thrive assessed: 02/08/24 I am a: Patient What is your living situation today?: I have a steady place to live Within the past 12 months, did the food you bought not last and you didn't have the money to get more?: Never true Within the past 12 months, did you worry whether your food would run out before you got money to buy more?: Never true Do you have trouble paying for medicines?: No Do you have trouble getting transportation to medical appointments?: No Do you have trouble paying your heating and electricity bill?: No Do you have trouble taking care of your child, family member or friend?: No Do you have trouble with day-to-day activities such as bathing, preparing meals, shopping, managing finances, etc.?: No Are you currently unemployed and looking for a job?: Yes Are you interested in more education?: No Please select the resources that you would like help with: None Currently or been in a relationship where the following occur: No concerns reported THRIVE Score: 0 AUDIT C Alcohol Use Questionnaire (AUDIT-C) 1. How often do you have a drink containing alcohol?: Never Total Score: 0 ELLIE-7 AMB Questionnaire ELLIE-7 Date ELLIE - 7 assessed: 01/05/23 Feeling nervous, anxious, or on edge: 0 = Not at all Not being able to stop or control worryin = Not at all Worrying too much about different things: 0 = Not at all Trouble relaxin = Not at all Being so restless that it is hard to sit still: 0 = Not at all Becoming easily annoyed or irritable: 0 = Not at all Feeling afraid as if something awful might happen: 0 = Not at all Total ELLEI-7 score (0-4 normal; 5-9 mild; 10-14 moderate; 15-21 severe): 0 Source: Developed by Drs. Beto Gomez, Rupinder Mccullough, Reggie Sena and colleagues, with an educational rashida from [employer]. ELLIE-7 Assessment Billing ELLIE-7 Assessment Tool: ELLIE-7 Assessment 93113 Review of Systems Const Denies fever(s) and Denies weakness Eyes Details: sees dr bolaños Denies change in vision and Reports requires corrective lenses ENT Reports no additional complaints Card Denies chest pain, Denies lightheadedness, Denies palpitations and Denies dyspnea Resp Denies chest congestion, Denies dyspnea and Denies wheezing GI Denies abdominal pain, Denies change in bowel habits, Denies dyspepsia, Denies heartburn and Denies nausea Denies hematuria, Denies urinary frequency, Denies dysuria and Denies urinary urgency Musc Reports as per HPI, Denies joint swelling, Denies muscle weakness and Reports stiffness Skin/Breast Denies rash Neuro Denies weakness Psych Details: Currently followed by psychiatry Reports no additional complaints Endo Denies polydipsia, Denies polyuria and Denies palpitations Yovany/Lymph Denies easy bruising Aller/Immun Denies seasonal rhinorrhea and Denies wheezing Physical exam (Primary Care) Vital Signs: Last Vital Signs Temp 97.7 F 12/17/24 08:36 Pulse 98 12/17/24 08:36 BP 136/70 12/17/24 08:36 Pulse Ox 98 12/17/24 08:36 Oxygen Delivery Method Room Air 12/17/24 08:36 BMI result Body Mass Index 37.4 Tobacco/Smoking Status: Tobacco use Status Tobacco use date assessed 12/17/24 12/17/24 08:41 Patient Tobacco Use Status Former Tobacco user 12/17/24 08:36 e-Cigarette/Vaping Use Never Used 12/17/24 08:36 PHQ-9: PHQ-9 Score PHQ-9: Total score 3 12/17/24 08:36 Depression Screening Interpretation: Negative (Controlled on medication, sees Psychiatry) Thrive Assessment: Date of Thrive Assessment Date Thrive assessed 02/08/24 12/17/24 08:36 Currently or been in a relationship where the following occur: No concerns reported Const General: comfortable, alert and awake Nutritional Appearance: obese Orientation/consciousness: patient oriented x3 Limitations: no limitations [facility] [place] Head: Yes normocephalic Ears: hearing grossly normal bilaterally, TM's normal bilaterally and EAC's normal General nose exam: Normal external nose present Eyes General: appearance normal, both eyes and all related structures Neck Other: Thyroid nonpalpable Neck: Yes full ROM, Yes no lymphadenopathy and Yes supple Resp Auscultation: clear to auscultation bilaterally Cardio Rate: regular rate Rhythm: regular rhythm Heart sounds: S1 normal heart sound present and S2 normal heart sound present GI Inspection: Yes normal to inspection and No obesity Palpation (GI): Soft to palpation, nontender and no guarding General: Yes no CVA tenderness Back/Spine/Pelvis Back: no CVA tenderness and No back tenderness Skin General skin exam: no rashes or lesions noted Neuro General: patient oriented x3 Extrem General: Yes full ROM, Yes no joint enlargement, Yes no clubbing, cyanosis or edema, No no calf tenderness and Yes normal gait Psych Appearance: grossly normal and well kempt Mental Status: mental status grossly normal Speech and movement: Normal speech and movement present Affect: normal affect Coding Level of Care Code Est Pt Level 4 (20712) Diagnoses Obesity (BMI 30.0-34.9) E66.9 Hypertriglyceridemia E78.1 Additional Codes PHQ-9 - 69700 - PHQ-9 Billing: Yes ([id number]) ELLIE-7 Assessment Billing - ELLIE-7 Assessment Tool: ELLIE-7 Assessment 73881 ([id number]) Assessment & Plan Assessment & Plan (1) Obesity (BMI 30.0-34.9): Code(s): E66.9 - Obesity, unspecified Category: Medical Plan: Started on Zepbound 2.5 mg injected subcutaneously once a week, patient instructed on proper administration of the medication, and discussed possible side effects that may occur which includes abdominal cramping, sudden nausea alteration in bowel habits, gastroparesis, vision changes continue with adherence to healthy eating habits and continue to do regular exercise, will see her back for follow-up in 2 months (2) Hypertriglyceridemia: Code(s): E78.1 - Pure hyperglyceridemia Category: Medical Plan: Previous fasting lipids done a year ago showed presence of a hypertriglyceridemia. . Reinforced importance of adherence to low-cholesterol diet and regular exercise, at least 30 minutes 3 to 4 times a week. Advised patient to make healthy food choices, eat more fruits, vegetables, whole grains, wild caught fish and low-fat dairy. Limit amount of meat and fried or fatty food products, as well as processed foods and fast foods. Follow-up scheduled with repeat fasting lipid panel in 2 months. Medications: New Zepbound (tirzepatide (weight loss)) for 4 weeks 2.5 mg (0.5 mL) subcut QWEEK 2 mL 2RF NS E66.9 - Obesity, unspecified
[2024-12-17 08:36] VITALS: BP 136/70; PULSE 98; TEMP 36.5; O2SAT 98; BMI 37.4
== END 2024-12-17 09:04 | disposition home or self-care (01) ==
PROVIDERS: PCP Internal Medicine; Visit Provider Internal Medicine
DX: E78.1 Pure hyperglyceridemia (principal); E66.9 Obesity, unspecified; Z68.37 Body mass index [BMI] 37.0-37.9, adult

== ENCOUNTER → 2024-12-17 08:15 | Outpatient (BNVA) | payer OTHER, SELFPAY | PROVIDERS: PCP Internal Medicine; Visit Provider Internal Medicine | DX: E78.1 Pure hyperglyceridemia (principal); F41.9 Anxiety disorder, unspecified; E66.9 Obesity, unspecified; Z68.37 Body mass index [BMI] 37.0-37.9, adult | CPT/HCPCS: 96127; 99212 ==

== ENCOUNTER 2025-03-07 15:12 | Outpatient (AMB) | payer OTHER, SELFPAY ==
--- NOTE | 2025-03-07 15:14 | AM.OFFWIN_ITS ---
Intake Vital Signs 03/07/25 15:15 Height 5 ft 3 in Weight 186 lb BMI 32.9 BP 135/78 Blood Pressure Location Rt brachial Position Sitting Pulse 90 Temp 97.9 F Temp Source Oral Pulse Oximetry (%) 96 Oxygen Delivery Method Room Air Intake Visit Reasons: EP head congestion, pain on ear Patient Tobacco Use Status: Former Tobacco user Critical Care Physician Assistant Required: No Is last menstrual period known: No Post menopausal: Yes Patient : No Allergies No Known Drug Allergies Allergy (Unknown, Unverified 03/07/25 15:21) Unknown HPI HPI Comments History of Present Illness Details History of Present Illness - The patient is a 59-year-old female pr esenting with symptoms of a sinus infection and ear blockage. - She reports being sick for six days wi th body aches and nasal congestion, producing green nasal discharge. - Ear blockage and sharp pains prevent h er from wearing hearing aids. - She has used Augmentin for sin us infections, which was ineffective this time. - Reports chills but no fever, and uses Flonase without relief. - History of smoking, currently a non-sm oker. - She denies fever, chills, CP, SOB, abd pain, sick contacts. Physical Exam General: Cooperative, healthy appearing, comfortable, no acute distress and well developed Head: Normal to inspection Ears: Hearing grossly normal bilaterally. No tragus or mastoid tenderness noted. Auditory canals clear on the left and cerumen on the right. TM normal on the left and not visualized on the right. No fluid noted. Nose: Normal external nose present. Moist mucosa. Turbinates normal bilaterally, not boggy. Face and sinus: Tenderness to palpation of the frontal and maxillary sinuses bilaterally. Neck: Normal visual inspection and Yes full ROM. No lymphadenopathy noted. Respiratory: Normal respiratory effort and able to speak in complete sentences. Clear to auscultation bilaterally Cardiovascular: Regular rate and rhythm. Normal S1 and S2 GI: Normal to inspection. Soft to palpation and nontender, nondistended. No guarding noted. Skin: No rashes or lesions noted [facility] Medical History Hearing loss Hypertriglyceridemia Former cigarette smoker Posterior right knee pain Obesity (BMI 30.0-34.9) Anxiety and depression Tinea corporis Polyarthralgia Allergic rhinitis History of cataract History of alcohol abuse History of cocaine abuse Osteoarthritis of knees, bilateral Surgical History History of breast surgery History of cataract surgery Family History Father Unknown family medical history Mother Diabetes mellitus Myocardial infarction Arthritis CVD (cardiovascular disease) Substance use disorder Mental health disorder Brother Myocardial infarction Intestinal hernia Diabetes mellitus Sister Anorexic Bipolar disorder Asthma Brain tumor Substance use disorder Mental health disorder Social History Household Members Other:: mother Housing: House Alcohol intake: former Patient Tobacco Use Status: Former Tobacco user Cigarettes Per Day: 10 e-Cigarette/Vaping Use: Never Used Patient : No service: No Current occupational status: employed Cognitive needs: No Hearing needs: No Vision needs: Yes Review of Systems Const All systems reviewed & are unremarkable except as noted in HPI and below Physical Exam Vital Signs: Last Vital Signs Temp 97.9 F 03/07/25 15:15 Pulse 90 03/07/25 15:15 BP 135/78 03/07/25 15:15 Pulse Ox 96 03/07/25 15:15 Oxygen Delivery Method Room Air 03/07/25 15:15 BMI result Body Mass Index 32.9 Office Procedures Cerumen Removal From which ear canal was the cerumen removed: right Removal: irrigation Notes: patient tolerated procedure well, no complications and ear canal clear [id number] Irrigation/Lavage Assessment & Plan Assessment & Plan (1) Sinus congestion: Code(s): R09.81 - Nasal congestion Plan: Most likely sinusitis vs viral illness vs URI plan -steam showers - tylenol or motrin as needed - augmentin BID for 7 days - continue with flonase - zyrtec D daily - follow up with PCP (2) Cerumen impaction: Code(s): H61.20 - Impacted cerumen, unspecified ear Qualifiers: Laterality: right Qualified Code(s): H61.21 - Impacted cerumen, right ear Plan Most likely cerumen impaction plan- -avoid using q-tips - will irrigate the ears in the office today - can refer to ent if no better - follow up with PCP Orders: Orders AMB Cerumen Removal Today H61.23 - Impacted cerumen, bilateral Medications: New cetirizine-pseudoephedrine 5-120 mg ER 1 tab PO BID 14 tabs 0RF 7 days amoxicillin-pot clavulanate 875-125 mg 1 tab PO Q12H 14 tabs 0RF 7 days Coding Level of Care Code Est Pt Level 3 (57752) Diagnoses Sinus congestion R09.81 Impacted cerumen of right ear H61.21 Laterality: right CPT Codes Office Procedure - CPT: 74445-[place] Irrigation/Lavage ([id number])
[2025-03-07 15:15] VITALS: BP 135/78; PULSE 90; TEMP 36.6; O2SAT 96; BMI 32.9
== END 2025-03-07 16:09 | disposition home or self-care (01) ==
PROVIDERS: PCP Internal Medicine; Visit Provider Physician Assistant Medical
DX: R09.81 Nasal congestion (principal); H61.21 Impacted cerumen, right ear

== ENCOUNTER → 2025-03-07 15:12 | Outpatient (BNVA) | payer OTHER, SELFPAY | PROVIDERS: PCP Internal Medicine; Visit Provider Physician Assistant Medical | DX: R09.81 Nasal congestion (principal); H61.21 Impacted cerumen, right ear | CPT/HCPCS: 69209; 99212 ==

== ENCOUNTER 2025-03-15 13:42 | Outpatient (REF) | payer OTHER, SELFPAY | END 2025-03-15 13:43 | disposition home or self-care (01) | LOC: HO.MAMMO 13:42 | PROVIDERS: PCP Internal Medicine; Visit Provider Internal Medicine | DX: Z12.31 Encounter for screening mammogram for malignant neoplasm of breast (principal) | CPT/HCPCS: 77063; 77067 ==

== ENCOUNTER → 2025-03-15 13:45 | Outpatient (BNV) | payer OTHER, SELFPAY | PROVIDERS: PCP Internal Medicine; Visit Provider Radiology Body Imaging | DX: Z12.31 Encounter for screening mammogram for malignant neoplasm of breast (principal) | CPT/HCPCS: 77063; 77067 ==

== ENCOUNTER → 2025-03-28 15:51 | Outpatient (BNVA) | payer OTHER, SELFPAY | PROVIDERS: PCP Internal Medicine; Visit Provider Internal Medicine | DX: Z00.01 Encounter for general adult medical examination with abnormal findings (principal); I10 Essential (primary) hypertension; E66.9 Obesity, unspecified; F41.9 Anxiety disorder, unspecified; F32.A Depression, unspecified; S30.861S Insect bite (nonvenomous) of abdominal wall, sequela; W57.XXXS Bitten or stung by nonvenomous insect and other nonvenomous arthropods, sequela; E78.1 Pure hyperglyceridemia; H91.90 Unspecified hearing loss, unspecified ear; J30.9 Allergic rhinitis, unspecified; R12 Heartburn; Z68.32 Body mass index [BMI] 32.0-32.9, adult; Z79.899 Other long term (current) drug therapy | CPT/HCPCS: 99396 ==

== ENCOUNTER → 2025-03-28 15:51 | Outpatient (AMB) | payer OTHER, SELFPAY ==
--- NOTE | 2025-03-28 16:01 | MHC.PC.OV ---
Vital Signs 03/28/25 16:02 Height 5 ft 3 in Weight 183 lb BMI 32.4 BP 118/74 Blood Pressure Location Rt brachial Position Sitting Respiration 16 Pulse 89 Pulse Source Pulse Oximeter Temp 98.1 F Temp Source Oral Pulse Oximetry (%) 98 Oxygen Delivery Method Room Air Intake Visit Reasons: PE Intake Note: Pt is here today for her PE: Last mammogram 03/15/25 Allergies No Known Drug Allergies Allergy (Unknown, Unverified 03/31/25 17:23) Unknown Medication List - Last Reconciled 03/28/25 by Sara Cid MD buspirone 10 mg PO TID cetirizine-pseudoephedrine 5-120 mg ER 1 tab PO BID 7 days famotidine 20 mg PO DAILY fluticasone propionate 50 mcg/actuation (Flonase Allergy Relief) 1 spray intranasal DAILY venlafaxine ER 150 mg PO DAILY Zepbound (tirzepatide (weight loss)) 5 mg (0.5 mL) subcut QWEEK NS Tobacco use date assessed: 03/28/25 Dental Screening Dental Screen Date: 03/28/25 Did you have a dental visit in the last 12 months?: No Did you have a dental problem in the last 6 months where you did not have access to dental care?: No Was dental information given to patient?: Patient declined HPI PE HPI Details 59-year-old lady with history of hypertension triglyceridemia, obesity, anxiety depression, and hearing loss, here today for physical exam. Up-to-date with her screening mammogram, done earlier this month with normal findings. Is overdue to get her Pap and pelvic exam , but patient does not want to get screening or exam done she also has declined getting colonoscopy procedure but is willing to do Cologuard testing instead, ordered today. Currently taking Zepbound for weight loss, has lost approximately 28 lb since starting it 2 months ago with no adverse effects reported from taking the medication. Had a recent tick bite on abdomen, denies any subsequent fever, no joint pain headache, muscle pain, cough shortness of breath reported. Would like to checked for Lyme. [facility] Medical History Hearing loss Hypertriglyceridemia Former cigarette smoker Posterior right knee pain Obesity (BMI 30.0-34.9) Anxiety and depression Tinea corporis Polyarthralgia Allergic rhinitis History of cataract History of alcohol abuse History of cocaine abuse Osteoarthritis of knees, bilateral Surgical History History of breast surgery History of cataract surgery Family History Father Unknown family medical history Mother Diabetes mellitus Myocardial infarction Arthritis CVD (cardiovascular disease) Substance use disorder Mental health disorder Brother Myocardial infarction Intestinal hernia Diabetes mellitus Sister Anorexic Bipolar disorder Asthma Brain tumor Substance use disorder Mental health disorder Social History Household Members Other:: mother Housing: House Alcohol intake: former Patient Tobacco Use Status: Former Tobacco user Cigarettes Per Day: 10 e-Cigarette/Vaping Use: Never Used service: No Current occupational status: employed Cognitive needs: No Hearing needs: No Vision needs: Yes Questionnaire PHQ-9 Over the last 2 weeks, how often have you been bothered by any of the following problems? Depression Screening Interpretation: Negative (Controlled on medication, sees Psychiatry) Depression Screening Done: Yes Source: Developed by Drs. Beto Gomez, Rupinder Mccullough, Reggie Sena and colleagues, with an educational rashida from [employer]. Thrive Questionnaire Date Thrive assessed: 12/17/24 I am a: Patient What is your living situation today?: I have a steady place to live Within the past 12 months, did the food you bought not last and you didn't have the money to get more?: Never true Within the past 12 months, did you worry whether your food would run out before you got money to buy more?: Never true Do you have trouble paying for medicines?: No Do you have trouble getting transportation to medical appointments?: No Do you have trouble paying your heating and electricity bill?: No Do you have trouble taking care of your child, family member or friend?: No Do you have trouble with day-to-day activities such as bathing, preparing meals, shopping, managing finances, etc.?: No Are you currently unemployed and looking for a job?: Yes Are you interested in more education?: No Please select the resources that you would like help with: None Currently or been in a relationship where the following occur: No concerns reported THRIVE Score: 0 ELLIE-7 AMB Questionnaire ELLIE-7 Date ELLIE - 7 assessed: 01/05/23 Source: Developed by Drs. Beto Gomez, Rupinder Mccullough, Reggie Sena and colleagues, with an educational rashida from [employer]. Review of Systems Const Denies fever(s) and Denies weakness Eyes Details: Sees Dr. Muñoz wears bifoca [id number] Denies change in vision and Reports requires corrective lenses ENT Details: Has hearing aids has appointment for a follow-up hearing test in speech and hearing at [facility] Reports no additional complaints Card Denies chest pain, Denies lightheadedness, Denies palpitations and Denies dyspnea Resp Denies chest congestion, Denies dyspnea and Denies wheezing GI Denies abdominal pain, Denies change in bowel habits, Reports heartburn (Occasional with food intake) and Denies nausea Denies hematuria, Denies urinary frequency, Denies dysuria and Denies urinary urgency Musc Reports as per HPI, Denies joint swelling, Denies muscle weakness and Reports stiffness Skin/Breast Denies rash Neuro Denies weakness Psych Details: Currently followed by psychiatry Reports no additional complaints Endo Denies polydipsia, Denies polyuria and Denies palpitations Yovany/Lymph Denies easy bruising Aller/Immun Denies seasonal rhinorrhea and Denies wheezing Physical exam (Primary Care) Vital Signs: Last Vital Signs Temp 98.1 F 03/28/25 16:02 Pulse 89 03/28/25 16:02 Resp 16 03/28/25 16:02 BP 118/74 03/28/25 16:02 Pulse Ox 98 03/28/25 16:02 Oxygen Delivery Method Room Air 03/28/25 16:02 BMI result Body Mass Index 32.4 Tobacco/Smoking Status: Tobacco use Status Tobacco use date assessed 03/28/25 03/28/25 16:03 Patient Tobacco Use Status Former Tobacco user 03/28/25 16:02 e-Cigarette/Vaping Use Never Used 03/28/25 16:02 Depression Screening Interpretation: Negative (Controlled on medication, sees Psychiatry) Thrive Assessment: Date of Thrive Assessment Date Thrive assessed 12/17/24 03/28/25 16:02 Currently or been in a relationship where the following occur: No concerns reported Const General: comfortable, alert and awake Nutritional Appearance: obese Orientation/consciousness: patient oriented x3 Limitations: no limitations HENMT Head: Yes normocephalic Ears: hearing grossly normal bilaterally, TM's normal bilaterally and EAC's normal General nose exam: Normal external nose present Eyes General: appearance normal, both eyes and all related structures Neck Other: Thyroid nonpalpable Neck: Yes full ROM, Yes no lymphadenopathy and Yes supple Resp Auscultation: clear to auscultation bilaterally Cardio Rate: regular rate Rhythm: regular rhythm Heart sounds: S1 normal heart sound present and S2 normal heart sound present GI Inspection: Yes normal to inspection and No obesity Palpation (GI): Soft to palpation, nontender and no guarding General: Yes no CVA tenderness Back/Spine/Pelvis Back: no CVA tenderness and No back tenderness Skin General skin exam: no rashes or lesions noted Neuro General: patient oriented x3 Extrem General: Yes full ROM, Yes no joint enlargement, Yes no clubbing, cyanosis or edema, No no calf tenderness and Yes normal gait Psych Appearance: grossly normal and well kempt Mental Status: mental status grossly normal Speech and movement: Normal speech and movement present Affect: normal affect Coding Level of Care Code Est Pt Prev Care 40-64y(54437) Diagnoses Annual visit for general adult medical examination with abnormal findings Z00. Tick bite of abdomen, sequela S30.861S; W57.XXXS Encounter type: sequela Anxiety and depression F41.9; F32.A Hypertriglyceridemia E78.1 Obesity (BMI 30.0-34.9) E66.9 Hearing loss, unspecified hearing loss type, unspecified laterality H91.90 Hearing loss type: unspecified Laterality: unspecified laterality Allergic rhinitis, unspecified seasonality, unspecified trigger J30.9 Allergic rhinitis trigger: unspecified Allergic rhinitis seasonality: unspecified Heartburn symptom R12 Assessment & Plan Assessment & Plan (1) Annual visit for general adult medical examination with abnormal findings: Code(s): Z00.01 - Encounter for general adult medical examination with abnormal findings Plan: Will check appropriate labs. Recommended dental visit every 6 months and regular eye exams, at least every 2 years, sees Dr. Muñoz. Take adequate calcium in diet and vitamin-D 3 at 2000 IU per cap once a day, in addition to weight-bearing exercises to help maintain good muscle tone and weight control. Instructed to do self-breast exam, and up-to-date with her screening mammogram, done yearly. Patient does not want to get any cervical cancer screening and pelvic exam done. Aware of importance of getting these exams. Does not want to get colonoscopy procedure but willing to do Cologuard testing, ordered today. Reminded to get her yearly flu shot, does not want to get further COVID vaccination, advised to get shingles vaccine but patient declined. (2) Tick bite of abdomen: Code(s): S30.861A - Insect bite (nonvenomous) of abdominal wall, initial encounter; W57.XXXA - Bitten or stung by nonvenomous insect and other nonvenomous arthropods, initial encounter Qualifiers: Encounter type: sequela Qualified Code(s): S30.861S - Insect bite (nonvenomous) of abdominal wall, sequela; W57.XXXS - Bitten or stung by nonvenomous insect and other nonvenomous arthropods, sequela Plan: Ordered Lyme titer (3) Anxiety and depression: Comment: Followed by Jacklyn chavez Code(s): F41.9 - Anxiety disorder, unspecified; F32.A - Depression, unspecified Category: Medical Plan: Followed by Psychiatry, currently doing well on buspirone and venlafaxine ER (4) Hypertriglyceridemia: Code(s): E78.1 - Pure hyperglyceridemia Category: Medical Plan: Reminded patient to get her fasting labs done check lipids. Continue with adherence to healthy eating habits and regular exercise. (5) Obesity (BMI 30.0-34.9): Code(s): E66.9 - Obesity, unspecified Category: Medical Plan: Continued on Zepbound, same dose, reinforced importance of adhering to healthy eating habits and getting regular exercise in addition to take medication to help with weight loss. No adverse effects noted from taking the medication (6) Hearing loss: Code(s): H91.90 - Unspecified hearing loss, unspecified ear Category: Medical Qualifiers: Hearing loss type: unspecified Laterality: unspecified laterality Qualified Code(s): H91.90 - Unspecified hearing loss, unspecified ear Plan: Has hearing aids, Has an appointment for follow-up with hearing center in [place] (7) Allergic rhinitis: Code(s): J30.9 - Allergic rhinitis, unspecified Category: Medical Qualifiers: Allergic rhinitis trigger: unspecified Allergic rhinitis seasonality: unspecified Qualified Code(s): J30.9 - Allergic rhinitis, unspecified Plan: Refills prescription for fluticasone propionate to use as directed (8) Heartburn symptom: Code(s): R12 - Heartburn Plan: Refilled her prescription for famotidine to take as needed, reminded regarding avoidance of food triggers Orders: Orders Lyme IgG/IgM w/reflex to WB 03/28/25 S30.861A - Insect bite (nonvenomous) of abdominal wall, initial encounter, W57.XXXA - Bitten or stung by nonvenomous insect and other nonvenomous arthropods, initial encounter, Z78.0 - Asymptomatic menopausal state Vitamin D 25-OH Total 03/28/25 S30.861A - Insect bite (nonvenomous) of abdominal wall, initial encounter, W57.XXXA - Bitten or stung by nonvenomous insect and other nonvenomous arthropods, initial encounter, Z78.0 - Asymptomatic menopausal state Referrals Cologuard Test Z12.11 - Encounter for screening for malignant neoplasm of colon, Z12.12 - Encounter for screening for malignant neoplasm of rectum Medications: Refilled famotidine 20 mg PO DAILY 90 tabs 1RF fluticasone propionate 50 mcg/actuation (Flonase Allergy Relief) administer into each nostril 1 spray intranasal DAILY 9.9 mL 1RF
[2025-03-28 16:02] VITALS: BP 118/74; PULSE 89; RESP 16; TEMP 36.7; O2SAT 98; BMI 32.4
== END ==
LOC: HO.HMCC 15:52
PROVIDERS: PCP Internal Medicine; Visit Provider Internal Medicine
DX: Z00.01 Encounter for general adult medical examination with abnormal findings (principal); S30.861A Insect bite (nonvenomous) of abdominal wall, initial encounter; E66.9 Obesity, unspecified; Z68.32 Body mass index [BMI] 32.0-32.9, adult; H91.93 Unspecified hearing loss, bilateral; W57.XXXA Bitten or stung by nonvenomous insect and other nonvenomous arthropods, initial encounter; F41.9 Anxiety disorder, unspecified; F32.A Depression, unspecified; E78.1 Pure hyperglyceridemia; J30.9 Allergic rhinitis, unspecified; R12 Heartburn

== ENCOUNTER 2025-04-30 08:50 | Outpatient (REF) | payer OTHER, SELFPAY | END 2025-04-30 08:51 | disposition home or self-care (01) | LOC: HO.SH 08:50 | PROVIDERS: Visit Provider Internal Medicine | DX: Z01.118 Encounter for examination of ears and hearing with other abnormal findings (principal); H90.3 Sensorineural hearing loss, bilateral | CPT/HCPCS: 92557; 92567 ==

== ENCOUNTER 2025-04-30 09:41 | Outpatient (REF) | payer SELFPAY ==
--- NOTE | 2025-04-30 10:00 | MHC.AU.HA3 ---
Hearing Instrument Follow-Up- Binaural Date of Visit: 04/30/25 Right Ear: Hank, Model, Color, Serial Number: Oticon OPN 3 miniRITE-T SN: [id number] Wrapping Checker Repair Warranty: 11/05/2019 Wrapping Checker Loss and Damage Warranty: 11/05/2019 Battery Size: 312 [employer] Laborer/Slim Tube: 2/85 Earmold/Dome/CShell/SlimTip:6mm power dome with retention tail Type of Wax Guard: miniFit Dispensed By: [facility] Date of Fitting: Per [facility], September 2017 Left Ear: Hank, Model, Color, Serial Number: Oticon OPN 3 miniRITE-T SN: [id number] Wrapping Checker Repair Warranty: 11/05/2019 Wrapping Checker Loss and Damage Warranty: 11/05/2019 Battery Size: 312 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 However, per [facility], noticeable change in hearing since last test, now right worse than left. Rec to ENT for new asymmetry. Discussed new HAs with EMs, provided contact information for [employer] again. In meantime, cleaned HAs. Replaced domes, wax guards, and retention tails. Vacuumed microphones. Ran through dehumidifier. Changed from open domes to power domes. Reprogrammed HAs, changed to DSL. Noticeable improvement in sound quality in office. Recommendations: Hearing instrument follow-up or maintenance as needed. Please contact our clinic with any questions or concerns. Diagnosis Code(s): Primary Diagnosis: H90.3 Bilateral Sensorineural Hearing Loss Signature: Provider: Joseph Jara, [facility]
== END 2025-04-30 09:42 | disposition home or self-care (01) ==
LOC: HO.HAP 09:41
PROVIDERS: PCP Internal Medicine; Visit Provider Internal Medicine
DX: Z46.1 Encounter for fitting and adjustment of hearing aid (principal); H90.3 Sensorineural hearing loss, bilateral
CPT/HCPCS: 92593

== ENCOUNTER 2025-05-13 12:50 | Outpatient (AMB) | payer OTHER, SELFPAY ==
--- NOTE | 2025-05-13 13:56 | AM.OFFWIN_ITS ---
Intake Vital Signs 05/13/25 13:57 Height 5 ft 3 in Weight 165 lb BMI 29.2 BP 112/80 Blood Pressure Location Lt brachial Position Sitting Pulse 105 H Pulse Source Pulse Oximeter Temp 98.2 F Temp Source Oral Pulse Oximetry (%) 99 Oxygen Delivery Method Room Air Intake Visit Reasons: EP weak, cough, sob, sweats([id number]) Intake Note: pt presents with body weakness/fatigue, non productive cough, SOB, body sweats Patient Tobacco Use Status: Former Tobacco user Allergies No Known Drug Allergies Allergy (Unknown, Verified 05/13/25 13:59) Unknown Do you need a note to return to daycare/school/sports/work: Yes HPI HPI Comments History of Present Illness Details 60 y/o Female patient who presents to [facility] walk in clinic with c/o body weakness/fatigue, non productive cough, SOB, and body sweats x 3 days now. [facility] Medical History (Updated 05/13/25 @ 14:33 by Mare Stinson NP) Acute respiratory disease Hearing loss Hypertriglyceridemia Former cigarette smoker Posterior right knee pain Obesity (BMI 30.0-34.9) Anxiety and depression Tinea corporis Polyarthralgia Allergic rhinitis History of cataract History of alcohol abuse History of cocaine abuse Osteoarthritis of knees, bilateral Surgical History History of breast surgery History of cataract surgery Family History Father Unknown family medical history Mother Diabetes mellitus Myocardial infarction Arthritis CVD (cardiovascular disease) Substance use disorder Mental health disorder Brother Myocardial infarction Intestinal hernia Diabetes mellitus Sister Anorexic Bipolar disorder Asthma Brain tumor Substance use disorder Mental health disorder Social History Household Members Other:: mother Housing: House Alcohol intake: former Patient Tobacco Use Status: Former Tobacco user Cigarettes Per Day: 10 e-Cigarette/Vaping Use: Never Used service: No Current occupational status: employed Cognitive needs: No Hearing needs: No Vision needs: Yes Review of Systems Const All systems reviewed & are unremarkable except as noted in HPI and below Physical Exam Vital Signs: Last Vital Signs Temp 98.2 F 05/13/25 13:57 Pulse 105 H 05/13/25 13:57 BP 112/80 05/13/25 13:57 Pulse Ox 99 05/13/25 13:57 Oxygen Delivery Method Room Air 05/13/25 13:57 BMI result Body Mass Index 29.2 Const General: no acute distress Nutritional Appearance: well nourished Orientation/consciousness: patient oriented x3 HEENT Head: Yes normocephalic Ears: external ears normal and TM abnormal with fluid behind the TM bilateral General nose exam: Normal external nose present Face and sinus: Yes sinuses nontender Mouth: moist mucous membranes Throat: Yes uvula midline Resp Effort & Inspection: normal respiratory effort Auscultation: clear to auscultation bilaterally, no crackles, no rales, no rhonchi and no wheezes Cardio Heart sounds: S1 normal heart sound present and S2 normal heart sound present Neuro General: patient oriented x3 Assessment & Plan Assessment & Plan (1) Acute respiratory disease: Code(s): J06.9 - Acute upper respiratory infection, unspecified Plan: Ordered Respiratory Panel. Acetaminophen for Pain relief. Rest and hydrate well with warm fluids. Orders: Orders Resp Pathogen Panel - [facility] [place] Today J06.9 - Acute upper respiratory infection, unspecified Coding Level of Care Code Est Pt Level 4 (13230) Diagnoses Acute respiratory disease J06.9 Time Spent (min) 20
[2025-05-13 13:57] VITALS: BP 112/80; PULSE 105; TEMP 36.8; O2SAT 99; BMI 29.2
== END 2025-05-13 14:48 | disposition home or self-care (01) ==
PROVIDERS: PCP Internal Medicine; Visit Provider Nurse Practitioner Family
DX: J06.9 Acute upper respiratory infection, unspecified (principal)

== ENCOUNTER 2025-05-13 12:50 | Outpatient (REF) | payer OTHER, SELFPAY ==
--- OUTSIDE RECORDS SUMMARY | 2025-05-13 17:11 | XMS_ITS | Data Portability ---
Author Organization [facility] - 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 Plan of Treatment Reminders Order Date Submit Date Provider Last Modified By Organization Details Last Modified Time Details Appointments RECHECK 15 2024 04:00P Armando Lewis PA-C Not available Not available Not available Lab None recorded. Referral None recorded. Procedures None recorded. Surgeries None recorded. Imaging XR, knee, 4 or more view - rm 111 4V naima knee pain 2023 024 [facility] Office, [address], [place], [address], 04/24/2024 15:41:07 Medication Orders diclofena c sodium 75 mg tablet,de layed release 2023 024 [facility]/Pharmacy #[id number], [address] [place], [address], 04/24/2024 15:57:17 tizanidin e 4 mg tablet 2023 024 [facility]/Pharmacy #[id number], [address] [place], [address], 04/24/2024 15:57:17 Patient TargetsNo targets recorded. Patient InstructionsNo instructions recorded. Reason for Referral None Reported. Results Created Date Observation Date Name Description Value Unit Range Abnormal Flag Note LastModifiedBy Organization Detail LastModifiedTime 04/24/20 24 04/24/2024 XR, knee, 4 or more view [email or web address] ?Encry pted=s hAaTro YD8dLq bEUv6g %2BXZw aYqtaq 0bqfl% 2Fg9IQ a4ajBk vP9nXo QUaueC m3YtLR FvZlgJ JJ8mAn HZtai3 [id number] AC0Kqa niBUKe kKiQtr MwF INTERFACE [facility] Office [address] [facility] [address], [place], [address], 04/24/2024 15:41:08 04/24/20 24 04/24/2024 XR, knee, 4 or more view [email or web address] ?Encry pted=s hAaTro YD8dLq bEUv6g %2BXZw aYqtaq 0bqfl% 2Fg9IQ a4ajBk vP9nXo QUaueC m3YtLR FvZlgJ [facility] 8x7041 AC0Kqa niBUKe kKiQtr MwF INTERFACE [facility] Office [address], [place], [address], 04/24/2024 15:41:09 Result Notes Documentation Provider Name and Address Organization Details Recorded Time Xr, Knee, 4 Or More View : [email or web address] Encrypted=idIuEatWD9kYibN Uv6g%6LOOntClpgc6slus%2Fg 1XSz1xeXlrD5uRsBXtvfOi4To AEYwWepOPD6qZdJDolq09l252 9HC5QnxfnBNOipYlViqGdF Not Available [facility] 04/24/2024 15:41: 08 Xr, Knee, 4 Or More View : [email or web address] Encrypted=joUsPbrSX5hZdaG Uv6g%2SPCiuKahgp8feuh%2Fg 8PNo2mmHltG2hEzBDgfgVi0Ws GJCaBccHPL8kFrXOjyx81e952 0BH8EtxrxGGRfsStCffZyP Not Available [facility] 04/24/2024 15:41: 10 Problems Name Problem SNOMED Code Status Onset Date Resolution Date Notes Provider Name and Address Organization Details Recorded Time Primary gonarthrosi s, bilateral [id number] Active 024 stephanie sagastumeFormerly [facility] 4 11:09:53 Problem Notes None recorded. Procedures Surgical History Date Name Laterality Status Provider Name and Address Organization Details Recorded Time 5 Knee Kenalog 40 1cc Injection, Bilateral completed Angel Lewis PA-C [address] [facility], [place], [address], [facility] 02/05/2025 15:47:44 5 Knee Kenalog 40 1cc Injection, Bilateral completed Angel Lewis PA-C [address], [place], [address], [facility] 11/05/2024 15:47:04 4 Knee Kenalog 40 1cc Injection, Bilateral completed Angel Lewis PA-C [address] [facility], [place], [address], [facility] 08/10/2024 13:34:28 4 Knee Kenalog 40 1cc Injection, Bilateral completed Angel Lewis PA-C [address], [place], [address], [facility] 04/25/2024 14:18:42 Imaging Results None recorded. Procedure Notes None recorded. Medical Equipment None Reported. Allergies No known drug allergies Medications Name Sig Start Date Stop Date Status Note LastModified by Organization Details LastModified Time cyclobenzap rine 10 mg tablet TAKE 1 TABLET BY MOUTH AT BEDTIME NEEDED FOR MUSCLE SPASMS active Not Available Not Available No t Available venlafaxine ER 75 mg capsule,ext ended release 24 hr TAKE 1 CAPSULE BY MOUTH IN THE MORNING. TAKE WITH 150MG FOR A TOTAL DOSE OF 225MG BY MOUTH DAILY active Not Available Not Available No t Available doxycycline hyclate 100 mg capsule 100 MG ORALLY 2 TIMES A DAY FOR 7 DAYS active Not Available Not Available No t Available trazodone 50 mg tablet TAKE ONE HALF TO ONE TABLET BY MOUTH DAILY AT BEDTIME NEEDED FOR ANXIETY. active Not Available Not Available No t Available tizanidine 4 mg tablet TAKE 1 TABLET BY MOUTH EVERY 8 HOURS DIRECTED FOR 7 DAYS active Not Available Not Available No t Available meloxicam 15 mg tablet TAKE 1 TABLET BY MOUTH EVERY DAY FOR 7 DAYS WITH FOOD DO NOT TAKE NABUMATON E WHILE TAKING active Not Available Not Available No t Available venlafaxine ER 150 mg capsule,ext ended release 24 hr TAKE 1 CAPSULE BY MOUTH EVERY DAY IN THE MORNING active Not Available Not Available No t Available tramadol 50 mg tablet TAKE 1 TABLET ORALLY 2 TIMES A DAY NEEDED FOR PAIN active Not Available Not Available No t Available amoxicillin 875 mg tablet active Not Available Not Available Not Available famotidine 20 mg tablet TAKE 1 TABLET BY MOUTH EVERY DAY active Not Available Not Available No t Available buspirone 10 mg tablet TAKE 1 TABLET BY MOUTH THREE TIMES A DAY active Not Available Not Available No t Available prednisone 50 mg tablet TAKE 1 TABLET BY MOUTH EVERY DAY FOR 5 DAYS active Not Available Not Available No t Available diclofenac sodium 75 mg tablet,ronald yed release TAKE 1 TABLET BY MOUTH TWICE A DAY DIRECTED active Not Available Not Available No t Available albuterol sulfate HFA 90 mcg/actuati on aerosol inhaler INHALE 2 PUFFS EVERY 6 HOURS NEEDED FOR SHORTNESS OF BREATH OR WHEEZING active Not Available Not Available No t Available cefdinir 300 mg capsule TAKE 1 CAPSULE ORALLY EVERY 12 HOURS active Not Available Not Available No t Available fluticasone propionate 50 mcg/actuati on nasal spray,suspe nsion USE 1 SPRAY INTRANASA LLY DAILY ADMINISTE R INTO EACH NOSTRIL active Not Available Not Available No t Available loratadine 10 mg tablet TAKE 1 TABLET ORALLY DAILY active Not Available Not Available No t Available amoxicillin 875 mg-potassiu m clavulanate 125 mg tablet TAKE 1 TABLET BY MOUTH EVERY 12 HOURS FOR 7 DAYS 05/03 completed Not Available Not Available Not Available nabumetone 500 mg tablet TAKE 1 TAB 2 TIMES A DAY NEEDED FOR PAIN, MODERATE active Not Available Not Available No t Available buspirone 15 mg tablet TAKE 1 TABLET BY MOUTH THREE TIMES A DAY DIRECTED active Not Available Not Available No t Available neomycin-po lymyxin-hyd rocort 3.5 mg-10,000 unit/mL-1 % ear drops,susp INSTILL 4 DROPS INTO THE EAR(S) EVERY 8 HOURS FOR 7 DAYS active Not Available Not Available No t Available venlafaxine ER 150 mg tablet,exte nded release 24 hr TAKE 1 TABLET BY MOUTH EVERY DAY active Not Available Not Available No t Available Zepbound 5 mg/0.5 mL subcutaneou s pen injector INJECT 5 MG SUBCUTANE OUSLY ONCE WEEKLY. active Not Available Not Available No t Available Zepbound 2.5 mg/0.5 mL subcutaneou s pen injector INJECT 1 PEN UNDER THE SKIN ONCE A WEEK active Not Available Not Available No t Available Zepbound 7.5 mg/0.5 mL subcutaneou s pen injector INJECT 7.5 MG SUBCUTANE OUSLY ONCE EVERY WEEK active Not Available Not Available No t Available Vitals Date Recorded Body height Body mass index (BMI) Body weight Provider Name and Address Organization Details Last Updated DateTime 11/05/2024 160.02 cm 33.7 kg/m2 57713.55 g Angel Lewis PA-C [address] [facility], [place], [address], [facility] 11/05/2024 15:31:00 Date Recorded Body height Provider Name an d Address Organization Details Last Updated DateTime 02/05/2025 160.02 cm RAMANDEEP MCLAUGHLIN [facility] 02/05/2025 15:32:17 Date Recorded Body height Body mass index (BMI) Body weight Provider Name and Address Organization Details Last Updated DateTime 04/24/2024 160.02 cm 33.7 kg/m2 91170.55 g Angel Lewis PA-C [address], [place], [address], [facility] 04/24/2024 15:32:57 Date Recorded Body height Body mass index (BMI) Body weight Provider Name and Address Organization Details Last Updated DateTime 08/07/2024 160.02 cm 33.7 kg/m2 29900.55 g Ramandeep Zaragoza [facility] 08/07/2024 16:09:38 Social History None recorded. Functional Status None recorded. Mental Status None recorded. Family History Nothing Reported. Medical History No medical history recorded. Gynecological HistoryNo gynecological history recorded. Obstetrics History GPAL:G 0 P 0 0 0 0 Past Encounters Encounter ID Performer Location Encounter Start Date Encounter Closed Date Diagnosis/Indication Diagnosis SNOMED-CT Code Diagnosis ICD10 Code Diagnosis IMO Codes Diagnosis Note [id number] Angel Lewis PA-C [place] [address] [place] [address] 04/24/2024 15:13:56 05/15/2024 11:53:25 Pain of bilateral knee regions [id number] 97172 M25.561 M25.562 Bilateral osteoarthritis of knees [id number] 00664 M17.0 [id number] Angel Lewis PA-C [place] [address] [place] [address] 08/07/2024 15:43:16 08/22/2024 15:21:17 Primary gonarthrosis, bilateral 840469646 M17.0 [id number] Angel Lewis PA-C [facility] [address] [place] [address] 11/05/2024 15:22:59 11/21/2024 12:39:03 Primary gonarthrosis, bilateral 712074574 M17.0 [id number] Angel Lewis PA-C [facility] [place] [address] 02/05/2025 15:29:28 02/20/2025 12:23:25 Primary gonarthrosis, bilateral 272268620 M17.0 7159721 Health Concerns Section Related Observation LastModified by Organization Detai ls LastModified Time None Recorded Concern Status LastModified by Organization Details LastModified Time None Recorded Advance Directives Directive None Recorded Payers Insurance Date Sequence Insurance Name Policy Number Policy Escoto Covered Member ID Escoto Member ID Guarantor Name 05/03/2025 1 [facility] [employer] [facility] TYPE I (HMO) [id number] Raine Fields [id number] Raine Fields Notes Date Note Type Note Provider Name and Address Organization Details Recorded Time 04/24/2024 text/html ROS as noted in the HPI I am seeing the patient today under the supervision of Dr. Maria who was available but who did not see the patient. HPI:Patient is a 58-year-old female who presents to the office today with complaint of bilateral knee pain as well as lower leg pain. Patient states that this started about 5 months ago. Pain came on suddenly and was severe. She did have ultrasounds done of her bilateral lower extremities which were negative for DVTs. Patient states that she did try to participate some physical therapy which seem to aggravate her pain. Patient has increased pain with prolonged standing and walking as well as sleeping at night. Has been utilizing Aleve as-needed for pain relief. Denies any mechanical symptoms such as catching, locking, or buckling. Patient states that she has had previous cortisone injections into her knees many years ago. This did provide her with some relief. Past family, medical, social history and review of systems has been reviewed, updated and is located in the patient s chart. Examination:Well appearing 58-year-old female in no acute distress. She is alert and oriented x3. She ambulates with symmetric gait. Bilateral knees reveal no erythema, warmth, ecchymosis,Swelling. Mild tenderness to palpation of the medial joint lines. No tenderness palpation over the lateral joint line. Range of motion of the knees from 0-120 degrees. The knees are stable to valgus and varus stress testing. Knee strength 5/5 against resistance with flexion and extension. Negative Cali test bilaterally. Negative Derek's maneuver bilaterally. Calves are soft and nontender. 4 views of the bilateral knees obtained in independent reviewed in the office today reveal joint space narrowing noted within the bilateral medial joint compartments with evidence of zhid-lw-ehlz articulation, subchondral sclerosis. Minimal osteophyte formation. Slight degenerative changes noted in the patellofemoral joints. No evidence of fracture. Impression:Bi-lateral Knee osteoarthritis Plan:We discussed the role of conservative management including medications, physical therapy, injection and bracing. At this point the patient was to proceed with injection. Please see procedure note. Patient provided with prescription today for muscle relaxer to help with some spasming in her lower extremities. They will follow up with us as scheduled. Angel Lewis PA-C [address] [place], [place] [address] [address], [place], [address], [facility] 04/25/2024 14:19:03 08/07/2024 text/html ROS as noted in the HPI I am seeing the patient today under the supervision of Dr. Maria who was available but who did not see the patient. HPI:Patient presents today follow-up regarding their Bi-lateral knee. They have had difficulty up and down stairs sitting standing. Previous injection gave good relief until recent. Problems ambulating. Hiik-wyo-ecgrvap medications are helping somewhat but not significantly. Pain is constant aching sometimes sharp pain with giving out sensations. Past family, medical, social history and review of systems has been reviewed, updated and is located in the patient s chart. Examination:The patient is well appearing and in no apparent distress. Alert and oriented x3. Gait is symmetric. Examination of the Bi-lateral knee reveals no evidence of any edema, erythema, or warmth. No Deformity. Range of motion of the knee limited with mild discomfort at the end ranges. no effusion. Does have some tenderness to palpation about the medial hemijoint line. No tenderness to palpation about the lateral hemijoint line. Patellofemoral crepitus is noted. mild lateral ligamentous laxity. Negative Derek s . Calf is supple and nontender. Neurovascularly intact distally. Impression:Bi-lateral Knee osteoarthritis Plan:We discussed the role of conservative management including medications, physical therapy, injection and bracing. At this point the patient was to proceed with injection. Please see procedure note. They will follow up with us as scheduled. Angel Lewis PA-C [address] [facility] [address], [place], [address], [facility] 08/10/2024 13:34:43 11/05/2024 text/html ROS as noted in the HPI I am seeing the patient today under the supervision of Dr. Fierro who was available but who did not see the patient. HPI:Patient presents today follow-up regarding their Bi-lateral knee. They have had difficulty up and down stairs sitting standing. Previous injection gave good relief until recent. Problems ambulating. Lydh-pkb-cylymaz medications are helping somewhat but not significantly. Pain is constant aching sometimes sharp pain with giving out sensations. Past family, medical, social history and review of systems has been reviewed, updated and is located in the patient s chart. Examination:The patient is well appearing and in no apparent distress. Alert and oriented x3. Gait is symmetric. Examination of the Bi-lateral knee reveals no evidence of any edema, erythema, or warmth. No Deformity. Range of motion of the knee limited with mild discomfort at the end ranges. Minimal effusion. Does have some tenderness to palpation about the medial hemijoint line. No tenderness to palpation about the lateral hemijoint line. Patellofemoral crepitus is noted. mild lateral ligamentous laxity. Negative Derek s . Calf is supple and nontender. Neurovascularly intact distally. Impression:Bi-lateral Knee osteoarthritis Plan:We discussed the role of conservative management including medications, physical therapy, injection and bracing. At this point the patient was to proceed with injection. Please see procedure note. They will follow up with us as scheduled. Angel Lewis PA-C [address] [facility] [address] [facility], [place], [address], [facility] 11/05/2024 15:47:24 02/05/2025 text/html ROS as noted in the HPI I am seeing the patient today under the supervision of Dr. Maria who was available but who did not see the patient. HPI:Patient presents today follow-up regarding their Bi-lateral knee. They have had difficulty up and down stairs sitting standing. Previous injection gave good relief until recent. Problems ambulating. Bpgg-mmh-qaizjnv medications are helping somewhat but not significantly. Pain is constant aching sometimes sharp pain with giving out sensations. Past family, medical, social history and review of systems has been reviewed, updated and is located in the patient s chart. Examination:The patient is well appearing and in no apparent distress. Alert and oriented x3. Gait is symmetric. Examination of the Bi-lateral knee reveals no evidence of any edema, erythema, or warmth. No Deformity. Range of motion of the knee limited with mild discomfort at the end ranges. Mild effusion. Does have some tenderness to palpation about the medial hemijoint line. No tenderness to palpation about the lateral hemijoint line. Patellofemoral crepitus is noted. mild medial ligamentous laxity. Negative Derek s . Calf is supple and nontender. Neurovascularly intact distally. Impression:Bi-lateral Knee osteoarthritis Plan:We discussed the role of conservative management including medications, physical therapy, injection and bracing. At this point the patient was to proceed with injection. Please see procedure note. They will follow up with us as scheduled. Angel Lewis PA-C [address] [facility] [address], [place], [address], [facility] 02/05/2025 15:48:04 OBGyn Episode No OBEpisode recorded.
[2025-05-14 09:07] LABS: Chlamydia pneumoniae PCR Not Detected (Not Detect.); Coronavirus 229E PCR Not Detected (Not Detect.); Coronavirus HKU1 PCR Not Detected (Not Detect.); Coronavirus NL63 PCR Not Detected (Not Detect.); Coronavirus OC43 PCR Not Detected (Not Detect.); RSV PCR Not Detected (Not Detect.); Rhino/Enterovirus PCR Detected (Not Detect.)
[2025-05-14 09:48] LABS: Influenza A H1 PCR Not Detected (Not Detect.); Influenza A H1-2009 PCR Not Detected (Not Detect.); Influenza A H3 PCR Not Detected (Not Detect.); SARS-CoV-2 PCR Not Detected (Not Detect.)
== END 2025-05-13 12:51 | disposition home or self-care (01) ==
LOC: HO.LAB 12:50
PROVIDERS: Nurse Practitioner Family; PCP Internal Medicine
DX: J06.9 Acute upper respiratory infection, unspecified (principal)
CPT/HCPCS: 87633; 99212